=== PATIENT | male | born 1980 | race Asian ===

== ENCOUNTER 2021-06-07 08:53 | Outpatient (REF) | payer OTHER, SELFPAY ==
[2021-06-07 10:27] LABS: MANUAL DIFF FLAG NO
[2021-06-07 10:30] LABS: Basophils Percent Auto 0.4 % (0-2); Eosinophils Absolute Auto 0.4 X10*3/uL (0.0-0.4); Eosinophils Percent Auto 4.4 % (0-4); Hematocrit 44.5 % (42.0-52.0); Hemoglobin 14.8 g/dl (14.0-18.0); Imm Gran Abs Auto 0.03 X10*3/uL (0.00-0.03); Imm Gran Pct Auto 0.4 % (0.0-0.4); Lymphocytes Absolute Auto 2.7 X10*3/uL (1.2-4.9); Lymphocytes Percent Auto 32.3 % (20-40); Mean Corpuscular HGB Conc 33.3 g/dl (31.0-36.0); Mean Corpuscular Hemoglobin 27.6 pg (27.0-33.0); Mean Platelet Volume 10.9 fL (9.4-12.4); Monocytes Absolute Auto 0.7 X10*3/uL (0.1-1.2); Neutrophils Absolute Auto 4.5 x10*3/uL (2.0-8.3); Neutrophils Percent Auto 54.5 % (45-73); Platelet Count 260 X10*3/uL (160-400); Red Blood Count 5.36 X10*6/uL (4.60-5.80); Red Cell Distribution Width 13.5 % (11.0-16.0); White Blood Count 8.3 X10*3/uL (4.8-10.8)
[2021-06-07 11:14] LABS: Alanine Aminotransferase 27 U/L (0-40); Albumin Level 4.3 g/dL (3.5-5.0); Alkaline Phosphatase 87 U/L (39-117); Anion Gap 9 (12-20); Aspartate Amino Transferase 21 U/L (5-37); Bilirubin Total 0.9 mg/dL (0.0-1.0); Blood Urea Nitrogen 19 mg/dL (9-16); Calcium 9.3 mg/dL (8.4-10.2); Carbon Dioxide 27 mmol/L (22-29); Chloride 106 mmol/L (96-108); Cholesterol 279 mg/dL; Estimated Glomerular Filt Rate > 60; Glucose Fasting 130 mg/dL (60-99); HDL Cholesterol 39 mg/dL; LDL Cholesterol Calculated 191 mg/dl; Lipase 10 U/L (8-78); Potassium 4.4 mmol/L (3.3-5.1); Sodium 138 mmol/L (135-145); Total Protein 7.6 g/dL (6.5-8.0); Triglycerides 247 mg/dL
[2021-06-07 11:32] LABS: TSH reflex Free T4 0.87 uIU/mL (0.32-4.0)
== END 2021-06-07 08:54 | disposition home or self-care (01) ==
LOC: HO.WFDLDS 08:53
PROVIDERS: Visit Provider Family Medicine
DX: Z00.00 Encounter for general adult medical examination without abnormal findings (principal); R10.9 Unspecified abdominal pain
CPT/HCPCS: 36415; 80053; 80061; 83690; 84443; 85025

== ENCOUNTER 2021-06-20 11:48 | Outpatient (REF) | payer OTHER, SELFPAY ==
[2021-06-20 14:17] LABS: Estimated Average Glucose 117 mg/dL; Hemoglobin A1c % 5.7 %
[2021-06-20 14:25] LABS: Anion Gap 11 (12-20); Blood Urea Nitrogen 14 mg/dL (9-16); Calcium 9.8 mg/dL (8.4-10.2); Carbon Dioxide 28 mmol/L (22-29); Chloride 106 mmol/L (96-108); Estimated Glomerular Filt Rate > 60; Glucose Fasting 110 mg/dL (60-99); Potassium 4.7 mmol/L (3.3-5.1); Sodium 140 mmol/L (135-145)
== END 2021-06-20 11:49 | disposition home or self-care (01) ==
LOC: HO.WFDLDS 11:48
PROVIDERS: Visit Provider Family Medicine
DX: R73.01 Impaired fasting glucose (principal)
CPT/HCPCS: 36415; 80048; 83036

== ENCOUNTER 2021-09-12 08:57 | Outpatient (REF) | payer OTHER, SELFPAY ==
[2021-09-12 11:54] LABS: Cholesterol 246 mg/dL; HDL Cholesterol 36 mg/dL; LDL Cholesterol Calculated 179 mg/dl; Triglycerides 159 mg/dL
== END 2021-09-12 08:58 | disposition home or self-care (01) ==
LOC: HO.WFDLDS 08:57
PROVIDERS: Visit Provider Family Medicine
DX: Z00.00 Encounter for general adult medical examination without abnormal findings (principal)
CPT/HCPCS: 36415; 80061

== ENCOUNTER 2021-12-07 11:56 | Outpatient (REF) | payer OTHER, SELFPAY ==
[2021-12-07 13:51] LABS: Cholesterol 274 mg/dL; HDL Cholesterol 33 mg/dL; LDL Cholesterol Calculated 182 mg/dl; Triglycerides 298 mg/dL
== END 2021-12-07 11:57 | disposition home or self-care (01) ==
LOC: HO.WFDLDS 11:56
PROVIDERS: Visit Provider Family Medicine
DX: E78.5 Hyperlipidemia, unspecified (principal)
CPT/HCPCS: 36415; 80061

== ENCOUNTER 2022-05-01 08:45 | Outpatient (REF) | payer OTHER, SELFPAY ==
[2022-05-01 12:17] LABS: Cholesterol 295 mg/dL; HDL Cholesterol 40 mg/dL; LDL Cholesterol Calculated 207 mg/dl; Triglycerides 240 mg/dL
== END 2022-05-01 08:46 | disposition home or self-care (01) ==
LOC: HO.WFDLDS 08:45
PROVIDERS: Visit Provider Family Medicine
DX: Z00.00 Encounter for general adult medical examination without abnormal findings (principal); E78.5 Hyperlipidemia, unspecified
CPT/HCPCS: 36415; 80061

== ENCOUNTER 2022-08-08 08:44 | Outpatient (REF) | payer OTHER, SELFPAY ==
[2022-08-08 11:29] LABS: Alanine Aminotransferase 32 U/L (0-40); Albumin Level 4.2 g/dL (3.5-5.0); Alkaline Phosphatase 88 U/L (39-117); Anion Gap 13 (12-20); Aspartate Amino Transferase 21 U/L (5-37); Bilirubin Total 0.8 mg/dL (0.0-1.0); Blood Urea Nitrogen 16 mg/dL (9-16); Calcium 9.2 mg/dL (8.4-10.2); Carbon Dioxide 24 mmol/L (22-29); Chloride 106 mmol/L (96-108); Cholesterol 190 mg/dL; Estimated Glomerular Filt Rate > 60; Glucose Fasting 127 mg/dL (60-99); HDL Cholesterol 35 mg/dL; LDL Cholesterol Calculated 103 mg/dl; Potassium 4.4 mmol/L (3.3-5.1); Sodium 139 mmol/L (135-145); Total Protein 7.2 g/dL (6.5-8.0); Triglycerides 262 mg/dL
== END 2022-08-08 08:45 | disposition home or self-care (01) ==
LOC: HO.WFDLDS 08:44
PROVIDERS: Visit Provider Family Medicine
DX: Z00.00 Encounter for general adult medical examination without abnormal findings (principal); E78.5 Hyperlipidemia, unspecified
CPT/HCPCS: 36415; 80053; 80061

== ENCOUNTER 2023-01-28 16:13 | Outpatient (AMB) | payer OTHER, SELFPAY ==
--- NOTE | 2023-01-28 16:32 | A.OFFPC_ITS ---
Vital Signs 01/28/23 16:34 Height 4 ft 4 in Weight 161 lb 8 oz BMI 42.0 BP 114/70 Blood Pressure Location Rt brachial Position Sitting Respiration 13 Pulse 84 Pulse Source Pulse Oximeter Temp 97.6 F Temp Source Temporal Artery Scan Pulse Oximetry (%) 98 Oxygen Delivery Method Room Air Intake Visit Reasons: f/u pre-diabetes Intake Note: Patient reports he has been having body pains x2 months and he is here to follow up with diabetic care. 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 Accompanied by: Self / Same As Patient Allergies flower Adverse Reaction (Mild, Uncoded 01/28/23 17:01) Itching Medication List - Last Reconciled 01/28/23 by Joelle Seo CNP meloxicam 15 mg PO DAILY 30 days Tobacco use date assessed: 08/15/22 Dental Screening Dental Screen Date: 01/28/23 Did you have a dental visit in the last 12 months?: No Did you have a dental problem in the last 6 months where you did not have access to dental care?: No Was dental information given to patient?: Patient has dentist HPI HPI Comments History of Present Illness Details 42 y/o male presents for prediabetes and upper arm pain for the past 2 months. His previous A1c were 5.7% and 5.9% respectively. He was instructed on left side changes. He notes he stop taking rosuvastatin because it was instructed by his PCP to do so. He reports left upper arm pain proximal to the elbow for the past 2 months. [id number] remedies and old scrip for back pain have not been effective. Denies joint involvement. Denies fall, injury, or trauma. Denies tingling, numbness, or loss of sensation. He reports history of fractured left elbow several years ago. [facility] Surgical History (Updated 02/12/22 @ 16:12 by TYSHAWN Stubbs) No pertinent past surgical history Social History Housing: House Alcohol intake: current Alcohol intake frequency: holidays/special occasions only Patient Tobacco Use Status: Current everyday Tobacco user Tobacco use type: Cigarette Cigarettes Per Day: 4 e-Cigarette/Vaping Use: Never Used Second Hand Smoke Exposure: No service: No Current occupational status: employed Current occupational exposures/hazards: No Cognitive needs: No Hearing needs: No Vision needs: No Questionnaire Thrive Questionnaire Date Thrive assessed: 06/20/21 KATHI-7 AMB Questionnaire KATHI-7 Date KATHI - 7 assessed: 09/21/21 Source: Developed by Drs. Matthew Esquivel, Araceli Lucia, Viktor Guaman and colleagues, with an educational ofe from [employer]. Review of Systems Const Details: Const Denies chills, Denies fatigue, Denies fever(s), Denies headache(s) and Denies weakness ENT Denies dizziness and Denies headache(s) Card Denies chest pain, Denies lightheadedness, Denies dyspnea and Denies other (Palpitations) Resp Denies cough, Denies dyspnea, Denies wheezing and Denies other ( shortness of breath) GI Denies abdominal pain, Denies melena, Denies hematochezia, Denies change in bowel habits, Denies dyspepsia and Denies nausea Denies hematuria and Denies dysuria Musc Reports as per HPI Skin/Breast Denies rash, Denies unusual bruising and Denies wounds Neuro Denies abnormal gait, Denies dizziness, Denies headache(s), Denies memory loss, Denies numbness, Denies Sensory deficit (Neuro), Denies tingling and Denies weakness Psych Denies anxiety, Denies depression, Denies memory loss Endo Denies cold intolerance, Denies fatigue, Denies heat intolerance, Denies polydipsia and Denies polyuria Aller/Immun Denies wheezing Physical exam (Primary Care) Vital Signs: Last Vital Signs Temp 97.6 F 01/28/23 16:34 Pulse 84 01/28/23 16:34 Resp 13 01/28/23 16:34 BP 114/70 01/28/23 16:34 Pulse Ox 98 01/28/23 16:34 Oxygen Delivery Method Room Air 01/28/23 16:34 BMI result Body Mass Index 42.0 Tobacco/Smoking Status: Tobacco use Status Tobacco use date assessed 08/15/22 01/28/23 16:37 Patient Tobacco Use Status Current everyday Tobacco 01/28/23 16:37 Tobacco use type Cigarette 01/28/23 16:37 e-Cigarette/Vaping Use Never Used 01/28/23 16:37 Thrive Assessment: Date of Thrive Assessment Date Thrive assessed 06/20/21 01/28/23 16:37 Const Other: General: no acute distress and well developed Nutritional Appearance: well nourished Orientation/consciousness: patient oriented x3 [facility] Head: Yes normocephalic and Yes atraumatic Eyes General: appearance normal, both eyes and all related structures Pupils: Equal, round and reactive pupils present EOM: EOMs intact bilaterally Resp Effort & Inspection: normal respiratory effort Auscultation: clear to auscultation bilaterally Cardio Rate: regular rate Rhythm: regular rhythm Heart sounds: S1 normal heart sound present, S2 normal heart sound present, no gallops, no murmurs and no rubs GI Palpation (GI): No Abdominal aortic bruit present, Soft to palpation, nontender, No hepatosplenomegaly present and No Rebound tenderness present Auscultation: normal bowel sounds General: Yes no CVA tenderness Back/Spine/Pelvis Back: no CVA tenderness Cervical Spine: cervical ROM normal and No Cervical spine tenderness Thoracic/Lumbar Spine: thoraco-lumbar ROM normal, No pain with thoraco-lumbar ROM, No thoracic spinal tenderness and No lumbar spinal tenderness Extrem General: Yes normal to inspection, No edema and No calf tenderness Negative Mill's test Skin General: warm and dry. Normal skin color. Normal skin turgor Lesions: no lesions Rashes: no rashes Trauma: no lacerations or abrasions Wounds: no wounds Nails: normal Neuro General: patient oriented x3, gait normal and no focal neuro deficit Cranial nerves: Yes Equal, round and reactive pupils present Cognition (Neuro): normal cognition Gait exam (Neuro): Normal gait present Sensory Exam: No Sensory deficit (Neuro) Psych Appearance: grossly normal Affect: normal affect Attitude: cooperative Thought process: Normal thought process present Results AMB Hemoglobin A1c AMB Hemoglobin A1c 7.1 % Last Edit by Maria Antonia Townsend CMA on 01/28/23 16:46 Results Reviewed Results Reviewed: Laboratory Last Values Hgb A1c (Clinic) 7.1 % (4.0-6.0) H 01/28/23 16:43 Assessment and Plan Assessment & Plan (1) Left arm pain: Code(s): M79.602 - Pain in left arm Plan: Normal ROM No overt trauma or injury noted Negative Mill's test Likely muscular pain. May also be tendinitis Naproxen ordered. Take as prescribed Warm/cold compresses encouraged Follow-up with worsening or new symptoms Verbalized understanding and agreed with treatment plan. (2) Diabetes: Code(s): E11.9 - Type 2 diabetes mellitus without complications Plan: A1c 7.1% today, slightly above goal of less than 7.0% Declines medication treatment at this time and notes he will continue with lifestyle changes ADA diet and routine exercise encouraged Informed that his PCP recommended for him to continue to take rosuvastatin as prescribed Follow-up with PCP in 3 months or return sooner with symptoms or concerns Verbalized understanding and agreed with treatment plan. Orders: Orders AMB Hemoglobin A1c Today Z13.9 - Encounter for screening, unspecified Medications: New naproxen 500 mg PO BID PRN 60 tabs 0RF pain Discontinued meloxicam Discontinued Reason: Doctor's Order 15 mg PO DAILY 30 tabs 2RF 30 days Coding Level of Care Code Est Pt Level 3 (30795) Diagnoses Left arm pain M79.602 Diabetes E11.9
[2023-01-28 16:34] VITALS: BP 114/70; PULSE 84; RESP 13; TEMP 36.4; O2SAT 98; BMI 42.0
== END 2023-01-28 17:27 | disposition home or self-care (01) ==
PROVIDERS: PCP Family Medicine; Visit Provider Nurse Practitioner Family
DX: M79.602 Pain in left arm (principal); E11.9 Type 2 diabetes mellitus without complications
CPT/HCPCS: 83036; 99213

== ENCOUNTER 2023-04-30 08:46 | Outpatient (AMB) | payer OTHER, SELFPAY ==
--- NOTE | 2023-04-30 08:53 | MHC.PC.OV ---
Vital Signs 04/30/23 08:54 Height 5 ft 4 in Weight 159 lb 4 oz BMI 27.3 BP 114/62 Blood Pressure Location Lt brachial Position Sitting Respiration 12 Pulse 65 Pulse Source Pulse Oximeter Pulse Oximetry (%) 98 Oxygen Delivery Method Room Air Intake Visit Reasons: f/u DM Intake Note: Patient is here to follow up on his diabetes today. Allergies flower Adverse Reaction (Mild, Uncoded 04/30/23 08:56) Itching Tobacco use date assessed: 04/30/23 Dental Screening Dental Screen Date: 04/30/23 Did you have a dental visit in the last 12 months?: No Did you have a dental problem in the last 6 months where you did not have access to dental care?: No Was dental information given to patient?: Patient declined HPI f/u DM HPI Details 42 y/o male presents to f/u diabetes. Last A1c 01/28/23 was 7.1%. He had declined any medications and noted he wanted to continue with lifestyle changes. A1c today 04/30/23 5.6%. He states he had stopped his statins 3 months ago. He has changed his dietary intake. He does not exercise much. [facility] Surgical History No pertinent past surgical history Housing: House Alcohol intake: current Alcohol intake frequency: holidays/special occasions only Patient Tobacco Use Status: Current everyday Tobacco user Tobacco use type: Cigarette Cigarettes Per Day: 4 e-Cigarette/Vaping Use: Never Used Second Hand Smoke Exposure: No service: No Current occupational status: employed Current occupational exposures/hazards: No Cognitive needs: No Hearing needs: No Vision needs: No Questionnaire PHQ-9 Over the last 2 weeks, how often have you been bothered by any of the following problems? 1. Little interest or pleasure in doing things: not at all 2. Feeling down, depressed, or hopeless: not at all 3. Trouble falling or staying asleep, or sleeping too much: not at all 4. Feeling tired or having little energy: not at all 5. Poor appetite or overeating: not at all 6. Feeling bad about yourself - or that you are a failure or have let yourself or your family down: not at all 7. Trouble concentrating on things, such as reading the newspaper or watching television: not at all 8. Moving or speaking so slowly that other people could have noticed. Or the opposite - being so fidgety or restless that you have been moving around a lot more than usual: not at all 9. Thoughts that you would be better off or of hurting yourself in some way: not at all Total score: 0 Source: Developed by Drs. Matthew Esquivel, Araceli Lucia, Viktor Guaman and colleagues, with an educational ofe from [email or web address]. Thrive Questionnaire Date Thrive assessed: 06/20/21 AUDIT C Alcohol Use Questionnaire (AUDIT-C) 1. How often do you have a drink containing alcohol?: Monthly or less 2. How many drinks containing alcohol do you have on a typical day when you are drinking?: 1 or 2 3. How often do you have six or more drinks on one occasion?: Never Total Score: 1 KATHI-7 AMB Questionnaire KATHI-7 Date KATHI - 7 assessed: 04/30/23 Feeling nervous, anxious, or on edge: 0 = Not at all Not being able to stop or control worryin = Not at all Worrying too much about different things: 0 = Not at all Trouble relaxin = Not at all Being so restless that it is hard to sit still: 0 = Not at all Becoming easily annoyed or irritable: 0 = Not at all Feeling afraid as if something awful might happen: 0 = Not at all Total KATHI-7 score (0-4 normal; 5-9 mild; 10-14 moderate; 15-21 severe): 0 Source: Developed by Drs. Matthew Esquivel, Araceli Lucia, Viktor Guaman and colleagues, with an educational ofe from [email or web address]. Review of Systems Const Denies chills, Denies fatigue, Denies fever(s), Denies headache(s) and Denies weakness ENT Denies dizziness and Denies headache(s) Card Denies dyspnea Resp Denies cough, Denies dyspnea, Denies wheezing and Denies other (shortness of breath) Musc Denies numbness and Denies tingling Neuro Denies dizziness, Denies headache(s), Denies numbness, Denies tingling and Denies weakness Psych Denies anxiety and Denies depression Endo Denies fatigue Aller/Immun Denies wheezing Physical exam (Primary Care) Vital Signs: Last Vital Signs Pulse 65 04/30/23 08:54 Resp 12 04/30/23 08:54 BP 114/62 04/30/23 08:54 Pulse Ox 98 04/30/23 08:54 Oxygen Delivery Method Room Air 04/30/23 08:54 BMI result Body Mass Index 41.4 Tobacco/Smoking Status: Tobacco use Status Tobacco use date assessed 04/30/23 04/30/23 09:02 Patient Tobacco Use Status Current everyday Tobacco 04/30/23 09:02 Tobacco use type Cigarette 04/30/23 09:02 e-Cigarette/Vaping Use Never Used 04/30/23 09:02 PHQ-9: PHQ-9 Score PHQ-9: Total score 0 04/30/23 09:20 Thrive Assessment: Date of Thrive Assessment Date Thrive assessed 06/20/21 04/30/23 09:02 Const General: well developed; No acute distress Nutritional Appearance: obese morbidly obese Orientation/consciousness: patient oriented x3 [facility] Head: Yes normocephalic and Yes atraumatic Eyes General: appearance normal, both eyes and all related structures Pupils: Equal, round and reactive pupils present EOM: EOMs intact bilaterally Resp Effort & Inspection: normal respiratory effort Auscultation: clear to auscultation bilaterally Cardio Rate: regular rate Rhythm: regular rhythm Heart sounds: S1 normal heart sound present, S2 normal heart sound present, no gallops, no murmurs and no rubs Neuro General: patient oriented x3 and gait normal Cranial nerves: Yes Equal, round and reactive pupils present Psych Affect: normal affect Results AMB Hemoglobin A1c AMB Hemoglobin A1c 5.6 % Last Edit by Maria Antonia Townsend CMA on 04/30/23 09:13 Results Reviewed Results Reviewed: Laboratory Last Values Hgb A1c (Clinic) 5.6 % (4.0-6.0) 04/30/23 09:09 Assessment and Plan Assessment & Plan (1) Diet-controlled diabetes mellitus: Code(s): E11.9 - Type 2 diabetes mellitus without complications Plan: A1c?now?down?to?5.6%?from?over?7% Diet-controlled?diabetes Encouraged?ongoing?dietary?changes. Encouraged?weight?control?and?exercise (2) Hyperlipidemia: Code(s): E78.5 - Hyperlipidemia, unspecified Plan: Patient?discontinued?his?statin?a?few?months?ago. LDL?cholesterol?had?been 207?when?we?were?had?put?him?on?a?statin?medication Recheck?lipids Encouraged?lifestyle?changes Orders: Orders UA and rflx microscopic Today E78.5 - Hyperlipidemia, unspecified, Z00.00 - Encounter for general adult medical examination without abnormal findings Prostate Specific Antigen Scr Today E78.5 - Hyperlipidemia, unspecified, Z12.5 - Encounter for screening for malignant neoplasm of prostate Microalbumin, Random (w Creat) Today E78.5 - Hyperlipidemia, unspecified, I10 - Essential (primary) hypertension AMB Hemoglobin A1c Today Z13.9 - Encounter for screening, unspecified Lipid Panel Today E78.5 - Hyperlipidemia, unspecified, Z00.00 - Encounter for general adult medical examination without abnormal findings Comprehensive [place]. Panel Fast Today E78.5 - Hyperlipidemia, unspecified, Z00.00 - Encounter for general adult medical examination without abnormal findings TSH reflex Free T4 Today E78.5 - Hyperlipidemia, unspecified, Z00.00 - Encounter for general adult medical examination without abnormal findings Coding Level of Care Code Est Pt Level 3 (47005) Diagnoses Diet-controlled diabetes mellitus E11.9 Hyperlipidemia E78.5
[2023-04-30 08:54] VITALS: BP 114/62; PULSE 65; RESP 12; O2SAT 98; BMI 27.3
== END 2023-04-30 09:49 | disposition home or self-care (01) ==
PROVIDERS: PCP Family Medicine; Visit Provider Family Medicine
DX: E11.9 Type 2 diabetes mellitus without complications (principal); E78.5 Hyperlipidemia, unspecified
CPT/HCPCS: 83036; 99213

== ENCOUNTER 2023-06-20 08:59 | Outpatient (REF) | payer OTHER, SELFPAY ==
[2023-06-20 13:23] LABS: Alanine Aminotransferase 31 U/L (0-40); Albumin Level 4.1 g/dL (3.5-5.0); Alkaline Phosphatase 100 U/L (39-117); Anion Gap 10 (12-20); Aspartate Amino Transferase 21 U/L (5-37); Bilirubin Total 0.5 mg/dL (0.0-1.0); Blood Urea Nitrogen 20 mg/dL (9-16); Calcium 9.2 mg/dL (8.4-10.2); Carbon Dioxide 25 mmol/L (22-29); Chloride 108 mmol/L (96-108); Cholesterol 247 mg/dL (<200); Estimated Glomerular Filt Rate > 60; Glucose Fasting 115 mg/dL (60-99); HDL Cholesterol 31 mg/dL (>40); LDL Cholesterol Calculated 179 mg/dL (<100); Potassium 4.1 mmol/L (3.3-5.1); Sodium 139 mmol/L (135-145); Total Protein 7.8 g/dL (6.5-8.0); Triglycerides 187 mg/dL (<150)
[2023-06-20 13:42] LABS: TSH reflex Free T4 1.03 uIU/mL (0.32-4.0)
== END 2023-06-20 09:00 | disposition home or self-care (01) ==
LOC: HO.WFDLDS 08:59
PROVIDERS: Visit Provider Family Medicine
DX: Z00.00 Encounter for general adult medical examination without abnormal findings (principal); Z12.5 Encounter for screening for malignant neoplasm of prostate; E78.5 Hyperlipidemia, unspecified
CPT/HCPCS: 36415; 80053; 80061; 84153; 84443

== ENCOUNTER 2023-08-28 08:51 | Outpatient (AMB) | payer OTHER, SELFPAY ==
--- NOTE | 2023-08-28 08:55 | A.OFFPC_ITS ---
Vital Signs 08/28/23 08:56 Height 5 ft 4 in Weight 161 lb 6 oz BMI 27.7 BP 114/66 Blood Pressure Location Lt brachial Position Sitting Pulse 76 Pulse Source Pulse Oximeter Pulse Oximetry (%) 99 Oxygen Delivery Method Room Air Intake Visit Reasons: CPE with f/u labs and health maintenance Intake Note: Patient is here today for his physical. Allergies flower Adverse Reaction (Mild, Uncoded 08/28/23 08:58) Itching Tobacco use date assessed: 08/28/23 Dental Screening Dental Screen Date: 08/28/23 Did you have a dental visit in the last 12 months?: No Did you have a dental problem in the last 6 months where you did not have access to dental care?: No Was dental information given to patient?: Patient declined HPI CPE with f/u labs and health maintenance HPI Details 43 y/o male presents for a CPE with f/u labs and health maintenance. Labs were drawn 06/20/23. Reviewed labs with pt. Elevated fasting glucose of 115. Last A1c in April was 5.6% - diet controlled diabetes. Triglycerides 187. TC 247. LDL 179. HDL low at 31. PSA 0.40 ng/mL. Pt states he has not had a colonoscopy before. A1c today 08/28/23 6.0%. [facility] Surgical History No pertinent past surgical history Social History Housing: House Alcohol intake: current Alcohol intake frequency: holidays/special occasions only Patient Tobacco Use Status: Current everyday Tobacco user Tobacco use type: Cigarette Cigarettes Per Day: 4 e-Cigarette/Vaping Use: Never Used Second Hand Smoke Exposure: No service: No Current occupational status: employed Current occupational exposures/hazards: No Cognitive needs: No Hearing needs: No Vision needs: No Questionnaire PHQ-9 Over the last 2 weeks, how often have you been bothered by any of the following problems? 1. Little interest or pleasure in doing things: not at all 2. Feeling down, depressed, or hopeless: not at all 3. Trouble falling or staying asleep, or sleeping too much: not at all 4. Feeling tired or having little energy: not at all 5. Poor appetite or overeating: not at all 6. Feeling bad about yourself - or that you are a failure or have let yourself or your family down: not at all 7. Trouble concentrating on things, such as reading the newspaper or watching television: not at all 8. Moving or speaking so slowly that other people could have noticed. Or the opposite - being so fidgety or restless that you have been moving around a lot more than usual: not at all 9. Thoughts that you would be better off or of hurting yourself in some way: not at all Total score: 0 Depression Screening Interpretation: Negative Depression Screening Done: Yes 24287 - PHQ-9 Billing: Yes Source: Developed by Drs. Matthew Esquivel, Araceli Lucia, Viktor Guaman and colleagues, with an educational ofe from [employer]. Thrive Questionnaire Date Thrive assessed: 08/28/23 I am a: Patient What is your living situation today?: I have a steady place to live Within the past 12 months, did the food you bought not last and you didn't have the money to get more?: Never true Within the past 12 months, did you worry whether your food would run out before you got money to buy more?: Never true Do you have trouble paying for medicines?: No Do you have trouble getting transportation to medical appointments?: No Do you have trouble paying your heating and electricity bill?: No Do you have trouble taking care of your child, family member or friend?: No Do you have trouble with day-to-day activities such as bathing, preparing meals, shopping, managing finances, etc.?: No Are you currently unemployed and looking for a job?: No Are you interested in more education?: No THRIVE Score: 0 AUDIT C Alcohol Use Questionnaire (AUDIT-C) 1. How often do you have a drink containing alcohol?: Monthly or less 2. How many drinks containing alcohol do you have on a typical day when you are drinking?: 5 or 6 3. How often do you have six or more drinks on one occasion?: Less than monthly Total Score: 4 KATHI-7 AMB Questionnaire KATHI-7 Date KATHI - 7 assessed: 08/28/23 Feeling nervous, anxious, or on edge: 0 = Not at all Not being able to stop or control worryin = Not at all Worrying too much about different things: 0 = Not at all Trouble relaxin = Not at all Being so restless that it is hard to sit still: 0 = Not at all Becoming easily annoyed or irritable: 0 = Not at all Feeling afraid as if something awful might happen: 0 = Not at all Total KATHI-7 score (0-4 normal; 5-9 mild; 10-14 moderate; 15-21 severe): 0 Source: Developed by Drs. Matthew Esquivel, Araceli Lucia, Viktor Guaman and colleagues, with an educational ofe from [employer]. KATHI-7 Assessment Billing KATHI-7 Assessment Tool: KATHI-7 Assessment [id number] Review of Systems Const Denies chills, Denies fatigue, Denies fever(s), Denies headache(s) and Denies weakness Eyes Denies change in vision ENT Denies dizziness, Denies headache(s), Denies hearing loss, Denies nasal congestion, Denies sinus pain, Denies sinus pressure and Denies sore throat Card Denies chest pain, Denies lightheadedness, Denies dyspnea and Denies other (palpitations) Resp Denies cough, Denies dyspnea and Denies wheezing GI Denies abdominal pain, Denies melena, Denies hematochezia, Denies change in bowel habits, Denies dyspepsia and Denies nausea Denies hematuria and Denies dysuria Musc Denies abnormal gait, Denies myalgias, Denies arthralgias, Denies numbness and Denies tingling Skin/Breast Denies rash, Denies unusual bruising and Denies wounds Neuro Denies abnormal gait, Denies dizziness, Denies headache(s), Denies memory loss, Denies numbness, Denies Sensory deficit (Neuro), Denies tingling and Denies weakness Psych Denies anxiety, Denies depression and Denies memory loss Endo Denies cold intolerance, Denies fatigue, Denies heat intolerance, Denies polydipsia and Denies polyuria Johny/Lymph Denies easy bleeding and Denies easy bruising Aller/Immun Denies wheezing Physical exam (Primary Care) Vital Signs: Last Vital Signs Pulse 76 08/28/23 08:56 BP 114/66 08/28/23 08:56 Pulse Ox 99 03/27/24 08:56 Oxygen Delivery Method Room Air 03/27/24 08:56 BMI result Body Mass Index 27.7 Tobacco/Smoking Status: Tobacco use Status Tobacco use date assessed 08/28/23 08/28/23 09:00 Patient Tobacco Use Status Current everyday Tobacco 08/28/23 09:00 Tobacco use type Cigarette 08/28/23 09:00 e-Cigarette/Vaping Use Never Used 08/28/23 09:00 PHQ-9: PHQ-9 Score PHQ-9: Total score 0 08/28/23 09:28 Depression Screening Interpretation: Negative Thrive Assessment: Date of Thrive Assessment Date Thrive assessed 08/28/23 08/28/23 09:05 Const General: no acute distress, well developed, alert and awake Nutritional Appearance: well nourished Orientation/consciousness: patient oriented x3 HENMT Head: Yes normocephalic and Yes atraumatic Ears: hearing grossly normal bilaterally and TM's normal bilaterally General nose exam: Normal external nose present and Normal nares present Mouth: Normal oral and palatal mucosa present and moist mucous membranes Teeth and gingiva: dentition normal Throat: Yes posterior oropharynx normal Eyes General: appearance normal, both eyes and all related structures Pupils: Equal, round and reactive pupils present and Pupil accommodation reflex normal EOM: EOMs intact bilaterally Neck Neck: Yes normal visual inspection, Yes no lymphadenopathy and Yes trachea midline Thyroid: Thyroid normal Carotids: no bruits Lymphatic: no lymphadenopathy noted Chest Chest palpation & inspection: normal inspection of the chest Resp Effort & Inspection: normal respiratory effort Auscultation: clear to auscultation bilaterally Cardio Rate: regular rate Rhythm: regular rhythm Heart sounds: S1 normal heart sound present, S2 normal heart sound present, no gallops, no murmurs and no rubs Bruits: no abdominal aortic bruits and no carotid bruits GI Palpation (GI): No Abdominal aortic bruit present, Soft to palpation, nontender, No hepatosplenomegaly present and No Rebound tenderness present Auscultation: normal bowel sounds General: Yes no CVA tenderness Back/Spine/Pelvis Back: no CVA tenderness Cervical Spine: cervical ROM normal and No Cervical spine tenderness Thoracic/Lumbar Spine: thoraco-lumbar ROM normal, No pain with thoraco-lumbar ROM, No thoracic spinal tenderness and No lumbar spinal tenderness Skin Lesions: no lesions Rashes: no rashes Trauma: no lacerations or abrasions Wounds: no wounds Nails: normal Neuro General: patient oriented x3 Cranial nerves: Yes Equal, round and reactive pupils present Cognition (Neuro): normal cognition Gait exam (Neuro): Normal gait present Motor exam (neuro): 5/5 motor strength present throughout Sensory Exam: No Sensory deficit (Neuro) Deep tendon reflexes (DTR's): Right patellar reflex intensity grade: 2+ and Left patellar reflex intensity grade: 2+ Extrem General: Yes normal to inspection and No edema Psych Appearance: grossly normal Affect: normal affect Attitude: cooperative Thought process: Normal thought process present Assessment and Plan Assessment & Plan (1) Adult general medical exam: Code(s): Z00.00 - Encounter for general adult medical examination without abnormal findings Plan: 43-year-old?male?presents?for?complete?physical?exam Encouraged?healthy?diet?with?active?lifestyle?and?plenty?of?exercise (2) Diet-controlled diabetes mellitus: Code(s): E11.9 - Type 2 diabetes mellitus without complications Plan: A1c?6.0%.??Goal?is?less?than?7.0%.??Good?control Continue?diet?control (3) Hyperlipidemia: Code(s): E78.5 - Hyperlipidemia, unspecified Plan: Had?been?on?atorvastatin?but?discontinued?this. Repeat?LDL?is?significantly?above?goal?of?less?than?100 Also?low?HDL?and?elevated?triglycerides Will?start?rosuvastatin?40?mg?daily (4) Low HDL (under 40): Code(s): E78.6 - Lipoprotein deficiency Plan: Low?HDL Encouraged?exercise (5) Screening for colon cancer: Code(s): Z12.11 - Encounter for screening for malignant neoplasm of colon Plan: Due?for?colonoscopy Referred?him?to?Gastroenterology (6) Screening for prostate cancer: Code(s): Z12.5 - Encounter for screening for malignant neoplasm of prostate Plan: PSA?was?within?normal?limits Orders: Orders AMB Hemoglobin A1c Today Z13.9 - Encounter for screening, unspecified Comprehensive [place]. Panel Fast Today E78.5 - Hyperlipidemia, unspecified, Z00.00 - Encounter for general adult medical examination without abnormal findings Lipid Panel Today E78.5 - Hyperlipidemia, unspecified, Z00.00 - Encounter for general adult medical examination without abnormal findings Referrals Gastroenterology Referral Z12.11 - Encounter for screening for malignant neoplasm of colon Medications: New rosuvastatin 40 mg PO DAILY 90 days 90 tabs 2RF Coding Level of Care Code Est Pt Level 3 (97566) Est Pt Prev Care 40-64y(54176) Diagnoses Adult general medical exam Z00.00 Diet-controlled diabetes mellitus E11.9 Hyperlipidemia E78.5 Low HDL (under 40) E78.6 Screening for colon cancer Z12.11 Screening for prostate cancer Z12.5 Additional Codes KATHI-7 Assessment Billing - KATHI-7 Assessment Tool: KATHI-7 Assessment [id number] ([id number])
[2023-08-28 08:56] VITALS: BP 114/66; PULSE 76; O2SAT 99; BMI 27.7
== END 2023-08-28 09:46 | disposition home or self-care (01) ==
PROVIDERS: PCP Family Medicine; Visit Provider Family Medicine
DX: Z00.00 Encounter for general adult medical examination without abnormal findings (principal); E11.69 Type 2 diabetes mellitus with other specified complication; E78.5 Hyperlipidemia, unspecified; E78.6 Lipoprotein deficiency; Z12.11 Encounter for screening for malignant neoplasm of colon; Z12.5 Encounter for screening for malignant neoplasm of prostate
CPT/HCPCS: 83036; 99213; 99396

== ENCOUNTER 2024-02-05 08:39 | Outpatient (AMB) | payer OTHER, SELFPAY ==
--- NOTE | 2024-02-05 08:52 | A.OFFPC_ITS ---
Vital Signs 02/05/24 08:54 Height 5 ft 2 in Weight 164 lb 6 oz BMI 30.1 BP 100/60 Blood Pressure Location Lt brachial Position Sitting Respiration 16 Pulse 72 Pulse Source Pulse Oximeter Temp 97.7 F Temp Source Tympanic Pulse Oximetry (%) 98 Oxygen Delivery Method Room Air Intake Visit Reasons: diet-controlled diabetes and hyperlipidemia Intake Note: F/U for DM and hyperlipidemia Allergies flower Adverse Reaction (Mild, Uncoded 08/28/23 08:58) Itching Tobacco use date assessed: 08/28/23 Dental Screening Dental Screen Date: 08/28/23 HPI diet-controlled diabetes and hyperlipidemia HPI Details 43 y/o male presents to f/u diet control led diabetes, hyperlipidemia. Last A1c 08/28/23 6.0%. A1c today 02/05/24 5.9%. Had started him on rosuvastatin 40mg daily last office visit in August. He notes he had stopped taking this. He states he felt his body did not need this anymore. No recent lipid panel to review. [facility] Surgical History No pertinent past surgical history Social History Housing: House Alcohol intake: current Alcohol intake frequency: holidays/special occasions only Patient Tobacco Use Status: Current everyday Tobacco user Tobacco use type: Cigarette Cigarettes Per Day: 4 e-Cigarette/Vaping Use: Never Used Second Hand Smoke Exposure: No service: No Current occupational status: employed Current occupational exposures/hazards: No Cognitive needs: No Hearing needs: No Vision needs: No Questionnaire Thrive Questionnaire Date Thrive assessed: 08/28/23 KATHI-7 AMB Questionnaire KATHI-7 Date KATHI - 7 assessed: 08/28/23 Source: Developed by Drs. Matthew Esquivel, Araceli Lucia, Viktor Guaman and colleagues, with an educational ofe from [employer]. Physical exam (Primary Care) Vital Signs: Last Vital Signs Temp 97.7 F 02/05/24 08:54 Pulse 72 02/05/24 08:54 Resp 16 02/05/24 08:54 BP 100/60 02/05/24 08:54 Pulse Ox 98 02/05/24 08:54 Oxygen Delivery Method Room Air 02/05/24 08:54 BMI result Body Mass Index 30.1 Tobacco/Smoking Status: Tobacco use Status Tobacco use date assessed 08/28/23 02/05/24 08:56 Patient Tobacco Use Status Current everyday Tobacco 02/05/24 08:56 Tobacco use type Cigarette 02/05/24 08:56 e-Cigarette/Vaping Use Never Used 02/05/24 08:56 Thrive Assessment: Date of Thrive Assessment Date Thrive assessed 08/28/23 02/05/24 08:56 Assessment and Plan Assessment & Plan (1) Diet-controlled diabetes mellitus: Code(s): E11.9 - Type 2 diabetes mellitus without complications Plan: A1c?5.9% Continue?diet?control.??Avoid?sugars?and?starches (2) Hyperlipidemia: Code(s): E78.5 - Hyperlipidemia, unspecified Plan: Lipids?have?been?high?including?LDL?greater?than?200?and?patient?was?put?on?stat in?medication. He?has?discontinued?this.??Has?not?gotten?his?lipids?drawn. Will?recheck?lipids?today?including?direct?LDL We?will?discuss?by?telemedicine?in?a?few?weeks Orders: Orders Lipid Panel Today Z00.00 - Encounter for general adult medical examination without abnormal findings LDL Cholesterol Direct Today E78.5 - Hyperlipidemia, unspecified Comprehensive Met. Panel Today E78.5 - Hyperlipidemia, unspecified Coding Level of Care Code Est Pt Level 3 (50241) Diagnoses Diet-controlled diabetes mellitus E11.9 Hyperlipidemia E78.5
[2024-02-05 08:54] VITALS: BP 100/60; PULSE 72; RESP 16; TEMP 36.5; O2SAT 98; BMI 30.1
== END 2024-02-05 09:21 | disposition home or self-care (01) ==
PROVIDERS: PCP Family Medicine; Visit Provider Family Medicine
DX: E11.9 Type 2 diabetes mellitus without complications (principal); E78.5 Hyperlipidemia, unspecified
CPT/HCPCS: 99213

== ENCOUNTER 2024-02-05 09:27 | Outpatient (REF) | payer OTHER, SELFPAY ==
[2024-02-05 11:37] LABS: Alanine Aminotransferase 41 U/L (0-40); Albumin Level 4.4 g/dL (3.5-5.0); Alkaline Phosphatase 86 U/L (39-117); Anion Gap 13 (12-20); Aspartate Amino Transferase 39 U/L (5-37); Bilirubin Total 0.4 mg/dL (0.0-1.0); Blood Urea Nitrogen 13 mg/dL (9-16); Calcium 9.3 mg/dL (8.4-10.2); Carbon Dioxide 24 mmol/L (22-29); Chloride 106 mmol/L (96-108); Cholesterol 236 mg/dL (<200); Estimated Glomerular Filt Rate > 60; Glucose Fasting 111 mg/dL (60-99); Glucose Random 111 mg/dL (60-115); HDL Cholesterol 33 mg/dL (>40); LDL Cholesterol Calculated 142 mg/dL (<100); Potassium 4.1 mmol/L (3.3-5.1); Sodium 139 mmol/L (135-145); Total Protein 8.3 g/dL (6.5-8.0); Triglycerides 305 mg/dL (<150)
[2024-02-06 21:54] LABS: LDL Cholesterol Direct 154 mg/dL (<100)
== END 2024-02-05 09:28 | disposition home or self-care (01) ==
LOC: HO.WFDLDS 09:27
PROVIDERS: Visit Provider Family Medicine
DX: Z00.00 Encounter for general adult medical examination without abnormal findings (principal); E78.5 Hyperlipidemia, unspecified
CPT/HCPCS: 36415; 80053; 80061; 83721

== ENCOUNTER 2024-03-02 11:30 | Outpatient (AMB) | payer OTHER, SELFPAY ==
--- NOTE | 2024-03-02 11:28 | A.OFFPC_ITS ---
Intake Visit Reasons: f/u HLD via telemedicine Intake Note: lab review Allergies flower Adverse Reaction (Mild, Uncoded 08/28/23 08:58) Itching Tobacco use date assessed: 08/28/23 Dental Screening Dental Screen Date: 08/28/23 HPI f/u HLD via telemedicine HPI Details 43 y/o male presents to f/u HLD via tele medicine. Labs drawn 02/05/24. Reviewed labs with pt. He notes he has not been taking artovastatin recently. Triglycerides 305. TC 236. LDL 154. HDL low at 33. PFSH Surgical History (Reviewed 08/28/23 @ 09:00 by Maria Antonia Townsend [facility]) No pertinent past surgical history Social History (Reviewed 08/28/23 @ 09:00 by Maria Antonia Townsend [facility]) Housing: House Alcohol intake: current Alcohol intake frequency: holidays/special occasions only Patient Tobacco Use Status: Current everyday Tobacco user Tobacco use type: Cigarette Cigarettes Per Day: 4 e-Cigarette/Vaping Use: Never Used Second Hand Smoke Exposure: No service: No Current occupational status: employed Current occupational exposures/hazards: No Cognitive needs: No Hearing needs: No Vision needs: No Questionnaire Thrive Questionnaire Date Thrive assessed: 08/28/23 KATHI-7 AMB Questionnaire KATHI-7 Date KATHI - 7 assessed: 08/28/23 Source: Developed by Drs. Matthew Esquivel, Araceli Lucia, Viktor Guaman and colleagues, with an educational ofe from [employer]. Physical exam (Primary Care) Tobacco/Smoking Status: Tobacco use Status Tobacco use date assessed 08/28/23 03/02/24 11:30 Patient Tobacco Use Status Current everyday Tobacco 03/02/24 11:30 Tobacco use type Cigarette 03/02/24 11:30 e-Cigarette/Vaping Use Never Used 03/02/24 11:30 Thrive Assessment: Date of Thrive Assessment Date Thrive assessed 08/28/23 03/02/24 11:30 Telehealth Telehealth Telehealth Platform: Telephone Location of provider rendering services: practice address Location of patient: address on file Patient Identification confirmed using: Name, : Yes Telehealth method: voice only Patient verbally consented to treatment: Yes Patient verbally consented to billing insurance company: Yes Patient informed of any privacy concerns related to visit: Yes Minutes spent on Phone/Video with Pt.: 5 Assessment and Plan Assessment & Plan (1) Hyperlipidemia: Code(s): E78.5 - Hyperlipidemia, unspecified Plan: LDL?cholesterol?is?too?high?as?are?triglycerides. HDL?is?too?low Will?resume?rosuvastatin?40?mg?daily. He?will?get?his?blood?drawn?prior?to?our?next?visit?so?we?can?review?to?see?how? rosuvastatin?is?working. Medications: Refilled rosuvastatin 40 mg PO DAILY 90 tabs 3RF 90 days Coding Level of Care Code Tele Est Pt Level 2 (89647) Diagnoses Hyperlipidemia E78.5
== END 2024-03-02 17:05 ==
LOC: HO.HMCFM 11:30
PROVIDERS: PCP Family Medicine; Visit Provider Family Medicine
DX: E78.5 Hyperlipidemia, unspecified (principal)

== ENCOUNTER → 2024-03-02 11:30 | Outpatient (BNVA) | payer OTHER, SELFPAY | PROVIDERS: PCP Family Medicine; Visit Provider Family Medicine ==

== ENCOUNTER 2024-04-14 10:48 | Emergency (ER) | payer OTHER, SELFPAY ==
--- NOTE | ~2024-04-14 | CT_ITS ---
EXAMINATION: CT ABDOMEN AND PELVIS WITHOUT CONTRAST CLINICAL INFORMATION: Left flank pain COMPARISON: None available. TECHNIQUE: Multidetector volumetric imaging was performed from the superior aspect of the liver through the pubic symphysis. Sagittal and coronal reformatted images were obtained on the technologist's workstation. This CT examination was performed using dose optimization techniques as appropriate, variously including the following: *Automated exposure control *Adjustment of mA and/or kV according to patient size (this includes techniques or standardized protocols for targeted exams where dose is matched to indication/reason for exam; i.e. extremities or head) *Use of iterative reconstruction technique DLP: 472 mGy-cm FINDINGS: INTRAMURAL DIRECTOR: Nonspecific prominent small bowel loops right mid abdomen. Evaluation of the mid abdominal contents limited by motion. LUNG BASES: The visualized lung bases are unremarkable. LIVER, GALLBLADDER, AND BILIARY TREE: The liver is prominent in size. Attenuation within normal limits. No focal hepatic lesion or biliary ductal dilatation is present. The gallbladder is unremarkable with no evidence of radiopaque gallstones, gallbladder wall thickening, or obvious pericholecystic inflammatory changes. . PANCREAS: Unremarkable. SPLEEN: Unremarkable. ADRENAL GLANDS: Unremarkable. KIDNEYS AND URETERS: Right kidney is normal in size, shape and position. No right renal, ureteral calculi, right hydroureteronephrosis identified. In comparison, the left kidney is enlarged measuring 12 cm and is edematous appearing. There is moderate left hydroureteronephrosis down to 7 mm distal UVJ calculus. Perinephric and periureteral stranding. Tiny nonobstructing left midpole calculi. BLADDER: Decompressed GASTROINTESTINAL TRACT: Distended stomach. Nonobstructive bowel pattern. Descending colon is decompressed. No colonic pathology recognized. ABDOMINAL WALL: No significant hernia is appreciated. LYMPH NODES: Normal. VASCULAR: Unremarkable. PELVIC VISCERA: Unremarkable. OSSEOUS STRUCTURES: Unremarkable. CT/CT abdomen pelvis wo IV con IMPRESSION: 7 mm left UVJ calculus with moderate left hydroureteronephrosis, left perinephric, periureteral stranding and edematous appearing left kidney. Fleischner guidelines were followed. Electronically signed by: Jayleen El MD 04/14/2024 01:21 PM [facility] [place]
[2024-04-14 11:54] VITALS: BP 150/96; PULSE 65; RESP 16; TEMP 36.2; O2SAT 100; BMI 32.9
--- NOTE | 2024-04-14 11:59 | ED.GENADULT ---
HPI - General Adult General Chief complaint: Abdominal Pain Stated complaint: abd pain Time Seen by Provider: 04/14/24 18:20 Source: patient Mode of arrival: ambulatory Limitations: no limitations History of Present Illness ED Provider: Mackenzie Aceves NP HPI narrative: Patient is a 43-year-old male presents emergency department for evaluation of diffuse lower abdominal pain radiating to the left flank over the past 3 weeks. Intermittent but is becoming more severe. Reports he was seen at an urgent care and had a urine sample done which contained blood and he was referred to emergency department for further evaluation. He denies any history of kidney stones. He denies seeing any adiel hematuria. Denies fevers, chills, chest pain, nausea, vomiting, hematemesis, diarrhea, constipation, hematochezia, melena, dysuria, frequency, urinary urgency, hesitancy. denies testicular pain/urethral discharge or scrotal swelling. Related Data Previous Rx's ?Medication ?Instructions ?Recorded rosuvastatin 40 mg tablet 40 mg PO DAILY 90 days #90 tabs 03/02/24 oxycodone 5 mg tablet 5 mg PO Q6H PRN pain #7 tabs 04/14/24 prednisone 20 mg tablet 20 mg PO DAILY #4 tabs 04/14/24 tamsulosin 0.4 mg capsule 0.4 mg PO BEDTIME #7 caps 04/14/24 Allergies Allergy/AdvReac Type Severity Reaction Status Date / Time flower AdvReac Mild Itching Uncoded 04/14/24 11:57 Review of Systems Review of Systems: Yes all other systems are reviewed and are negative PMFSH Past Medical History Attestation statement: The following information was validated with the patient. Source: old records reviewed Surgical History No pertinent past surgical history Social History Social History Housing: House Alcohol intake: current Alcohol intake frequency: holidays/special occasions only Alcohol type: beer and wine Patient Tobacco Use Status: Current everyday Tobacco user Tobacco use type: Cigarette Cigarettes Per Day: 4 Smoked in Last 30 Days: Yes e-Cigarette/Vaping Use: Never Used Second Hand Smoke Exposure: No Use of substances other than those prescribed or required for medical reasons: No Advance Directives: No Advance Directives Information Provided: Yes Do you have a plan to hurt others: No Plan service: No Current occupational status: employed Current occupational exposures/hazards: No Cognitive needs: No Hearing needs: No Vision needs: No Physical Exam ED Vital Signs: Vital Signs - 24 hr 04/14/24 11:54 04/14/24 18:25 04/14/24 21:21 Temperature 97.2 F 97.8 F 98.3 F Pulse Rate 65 69 66 Respiratory Rate 16 16 20 Blood Pressure 150/96 H 141/88 H 128/83 Pulse Oximetry 100 100 100 Oxygen Delivery Method Room Air Room Air BMI result Body Mass Index 32.9 Appearance: Alert.?Oriented to person, place and time. No acute distress.?Normal affect.?? Neck: Normal inspection.? Neck supple.?? CVS: Heart sounds normal. Normal heart rate and rhythm.? Pulses normal.?? Respiratory: No respiratory distress.? Lung sounds clear to auscultation bilaterally?? Abdomen: Soft and non-tender. No rebound tenderness at McBurney's point. Negative psoas sign. Negative Rovsing sign. Negative Romero sign. Left CVAT Normoactive bowel sounds. No pulsatile mass.?? Skin: Skin warm and dry.? Normal skin color.? Extremities: No lower extremity edema.? Neuro: Moves all extremities spontaneously. Sensation intact bilaterally. Ambulates with normal steady gait. Course Course Course Narrative: This is a rapid medical exam performed by Barbara Beaver NP: Additional HPI, ROS, PE not included below will be deferred to primary provider. Patient is a 43-year-old male referred to the ED by urgent care to rule out kidney stone. Patient presented with left lower quadrant abdominal pain radiating to flank, UA there noted to have 3+ blood. Plan:Labs, UA, CT, toradol Reevaluation(s) Reevaluation #1: Revealing leukocytosis with left shift, however he is afebrile without tachycardia. Initial concern for possibly an infected stone as he has a 7 mm left UVJ stone with moderate hydroureter nephrosis perinephric and periureteral stranding. Sepsis alert was called, blood cultures and lactic acid were obtained and he was covered with Rocephin. No lactic acidosis. Urine appears without infection. I did discuss this case with Urology, Dr. Ricky Loving recommends that if patient's pain is able to be managed you may be discharged home with outpatient care and follow-up with her office and strict return precautions. Would be discharged with prednisone, tamsulosin, and analgesia. Patient was agreeable with this plan. He received Toradol in the emergency department with improvement in his symptoms. He is tolerating oral intake. He offers no additional infectious type symptoms to suggest an alternative source of infection with this leukocytosis, I suspect it is likely inflammatory in nature, especially given his symptoms have been ongoing for the past 3 weeks. Time: 20:30 Medications Administered Discontinued Medications Generic Name Dose Route Start Last Admin Trade Name Freq PRN Reason Stop Dose Admin Ceftriaxone Sodium 1 gm 04/14/24 18:21 04/14/24 19:31 Ceftriaxone Sodium 1 Gm Vial IVPUSH 04/14/24 18:22 1 gm ONCE ONE Administration Sodium Chloride 1,000 mls @ 999 mls/hr 04/14/24 18:30 04/14/24 21:20 Ns IV 04/14/24 19:30 Infused .Q1H1M JESSICA Infusion Ketorolac Tromethamine 30 mg 04/14/24 11:59 04/14/24 12:03 Ketorolac Tromethamine 30 Mg/Ml Vial IM 04/14/24 12:00 30 mg ONCE ONE Administration Ketorolac Tromethamine 15 mg 04/14/24 18:29 04/14/24 19:31 Ketorolac Tromethamine 15 Mg/Ml Vial IVPUSH 04/14/24 18:30 15 mg ONCE ONE Administration Prednisone 20 mg 04/14/24 20:17 04/14/24 20:44 Prednisone 20 Mg Tablet PO 04/14/24 20:18 20 mg ONCE ONE Administration Tamsulosin HCl 0.4 mg 04/14/24 20:17 04/14/24 20:44 Tamsulosin Hcl 0.4 Mg Capsule PO 04/14/24 20:18 0.4 mg ONCE ONE Administration Medical Decision Making Medical Decision Making [facility] Narrative: Patient is a 43-year-old male presents emergency department for evaluation of 3 weeks with intermittent lower abdominal pain with left flank pain, outpatient urinalysis with microscopic hematuria as per HPI. Abdominal examination is benign anteriorly, left CVAT, overall without signs of systemic toxicity found to be afebrile without tachycardia, no hypotension. Serum labs urinalysis and CT abdomen and pelvis to be obtained. No associated chest pain shortness of breath or URI symptoms to suggest pneumonia, no clinical evidence of DVT or personal history of VTE/malignancy to suggest pulmonary embolism. No high-risk past medical history to suggest myocardial infarction and is without chest pain, less likely AAA, aortic dissection. No abdominal tenderness upon palpation, negative Romero sign, unlikely acute cholecystitis, choledocholithiasis, no fever or jaundice to suggest acute cholangitis, may possibly be biliary colic secondary to cholelithiasis. Denies associated acid reflux, no tenderness upon palpation over the epigastrium or left upper quadrant to suggest gastritis, no recent hematemesis history less likely to suggest PUD. Denies excessive alcohol consumption, history of diabetes, lower suspicion acute pancreatitis. No rebound tenderness at McBurney's point, rigidity, guarding to suggest acute appendicitis. No tenderness of the left lower quadrant nor associated nausea, vomiting, diarrhea patient, hematochezia or melena to suggest diverticulitis or GI bleed. No appreciable hernia to suggest strangulation/incarceration. Lower suspicion for bowel obstruction. No distention or rigidity to suggest GI perforation. no testicular pain or swelling, low clinical suspicion for testicular torsion. Differential Diagnosis Differential Diagnoses: The differential diagnosis associated with the presentation includes (See narrative above) Admission/Observation Consideration of admission/observation: Escalation of care including admission/observation considered (See narrative above ) Lab Data MDM Lab Attestation statement: I reviewed the patient's lab results. 04/14/24 12:48 04/14/24 12:48 Labs: Lab Results 04/14/24 04/14/24 04/14/24 Range/Units 12:48 19:12 19:13 WBC 21.4 H (4.8-10.8) X10*3/uL RBC 5.29 (4.60-5.80) X10*6/uL Hgb 15.1 (14.0-18.0) g/dl Hct 43.4 (42.0-52.0) % MCV 82.0 (80.0-98.0) fL MCH 28.5 (27.0-33.0) pg MCHC 34.8 (31.0-36.0) g/dl RDW 13.0 (11.0-16.0) % Plt Count 292 (160-400) X10*3/uL MPV 10.5 (9.4-12.4) fL Immature Gran % (Auto) 0.5 H (0.0-0.4) % Neut % (Auto) 88.5 H (45-73) % Lymph % (Auto) 5.1 L (20-40) % [place] % (Auto) 5.7 (2-11) % Eos % (Auto) 0.0 (0-4) % Baso % (Auto) 0.2 (0-2) % Lymph # (Auto) 1.1 L (1.2-4.9) X10*3/uL [place] # (Auto) 1.2 (0.1-1.2) X10*3/uL Eos # (Auto) 0.0 (0.0-0.4) X10*3/uL Baso # (Auto) 0.1 (0.0-0.2) X10*3/uL Abs Immat Gran (auto) 0.10 H (0.00-0.03) X10*3/uL Absolute Neuts (auto) 18.9 H (2.0-8.3) x10*3/uL Absolute Nucleated RBC 0.000 (0.0-0.012) X10*3/uL Nucleated RBC % (auto) 0.0 (0.0-0.2) /100WBC Sodium 138 (135-145) mmol/L Potassium 4.2 (3.3-5.1) mmol/L Chloride 104 (96-108) mmol/L Carbon Dioxide 24 (22-29) mmol/L Anion Gap 14 (12-20) BUN 24 H (9-16) mg/dL Creatinine 0.87 (0.5-1.4) mg/dL Estim Creat Clear Calc 89.5 Estimated GFR > 60 Random Glucose 136 H (60-115) mg/dL Lactic Acid 1.6 (0.5-2.0) mmol/L Calcium 9.7 (8.4-10.2) mg/dL Total Bilirubin 0.5 (0.0-1.0) mg/dL AST 31 (5-37) U/L ALT 39 (0-40) U/L Alkaline Phosphatase 94 (39-117) U/L Total Protein 8.2 H (6.5-8.0) g/dL Albumin 4.4 (3.5-5.0) g/dL Urine Color Yellow Urine Appearance Clear Urine pH 7.0 (5.0-9.0) Ur Specific [place] 1.020 (1.005-1.025) Urine Protein Negative (Neg-Trace) mg/dL Urine Glucose (UA) Negative (Negative) mg/dL Urine Ketones Negative (Negative) mg/dL Urine Blood Trace H (Negative) Urine Nitrite Negative (Negative) Ur Leukocyte Esterase Negative (Negative) Urine RBC 3-5 H (0-2) /HPF Urine WBC 0-5 (0-5) /HPF Ur Squamous Epith Cells 0-2 (0-2) /HPF Urine Bacteria None Seen (None Seen) Hyaline Casts 0-2 (0-2) /LPF Independent Interpretation I performed an independent interpretation of an: CT Scan (Left ureteral stone with hydro) Radiology Impression Discussion of test interpretation with radiology: I have reviewed the radiologist's reading. Radiologist Impression: CT/CT abdomen pelvis wo IV con IMPRESSION: 7 mm left UVJ calculus with moderate left hydroureteronephrosis, left perinephric, periureteral stranding and edematous appearing left kidney. Fleischner guidelines were followed. Prescription Management I considered prescription management with: Other (See course narrative) Discharge Plan Discharge Clinical Impression: Hydronephrosis with urinary obstruction due to ureteral calculus Patient Disposition: Home, Self-Care Instructions: Hydronephrosis (ED), Ureteral Stones (ED) Additional Instructions: As mentioned you have a kidney stone that is lodged in your ureter (this small tube that drains the urine from your kidney down to the bladder). As the stone moves it can be very painful. Your urine test today does not show any evidence of infection which is very reassuring. I have sent a few medications to your pharmacy - Tamsulosin; a medicine that will help to dilate the ureter to allow for the stone to pass easier. Take this daily at bedtime. You received the first dose in the emergency department today, you may begin taking it tomorrow night. - Prednisone; this is a steroid that will help as an anti-inflammatory. Take this with food to prevent stomach upset. You received the 1st dose in the emergency department you may take this again tomorrow morning. - I have sent a prescription for oxycodone to your pharmacy. This is a narcotic medication. It may be addictive. You should not drive, drink alcohol, or work while taking this medication. You may take this as needed every 6 hours for severe pain that is intolerable. If your symptoms are worsening meeting your pain is worsening you are not able to keep any food or drink down, you are unable to urinate, or having fevers and chills you should return back to emergency department for evaluation. Please contact the urologist office 1st thing tomorrow morning to arrange for an outpatient follow-up appointment. I have provided their contact information for you with this discharge; Dr. Ricky Loving Prescriptions: New prednisone 20 mg tablet 20 mg PO DAILY Qty: 4 0RF tamsulosin 0.4 mg capsule 0.4 mg PO BEDTIME Qty: 7 0RF oxycodone 5 mg tablet 5 mg PO Q6H PRN (Reason: pain) Qty: 7 0RF Rx Instructions: Partial Fill upon patient request. No Action rosuvastatin 40 mg tablet 40 mg PO DAILY 90 Days Qty: 90 3RF Referrals: Abbi Gore MD [Physician] - Guanako Flores MD [Primary Care Provider] - Interventions: ED Discharge Assessment Last Done: 04/14/24 21:21 Discharge Date/Time: 04/14/24 21:21 Print Language: Telugu
[2024-04-14] MEDS: Ketorolac Tromethamine 30 MG/ML VIAL IM (12:03)
[2024-04-14 12:52] LABS: MANUAL DIFF FLAG NO
[2024-04-14 12:53] LABS: Basophils Absolute Auto 0.1 X10*3/uL (0.0-0.2); Basophils Percent Auto 0.2 % (0-2); Hematocrit 43.4 % (42.0-52.0); Hemoglobin 15.1 g/dl (14.0-18.0); Imm Gran Pct Auto 0.5 % (0.0-0.4); Lymphocytes Absolute Auto 1.1 X10*3/uL (1.2-4.9); Lymphocytes Percent Auto 5.1 % (20-40); Mean Corpuscular HGB Conc 34.8 g/dl (31.0-36.0); Mean Corpuscular Hemoglobin 28.5 pg (27.0-33.0); Mean Platelet Volume 10.5 fL (9.4-12.4); Monocytes Absolute Auto 1.2 X10*3/uL (0.1-1.2); Monocytes Percent Auto 5.7 % (2-11); Neutrophils Absolute Auto 18.9 x10*3/uL (2.0-8.3); Neutrophils Percent Auto 88.5 % (45-73); Platelet Count 292 X10*3/uL (160-400); Red Blood Count 5.29 X10*6/uL (4.60-5.80); White Blood Count 21.4 X10*3/uL (4.8-10.8)
[2024-04-14 13:12] LABS: Alanine Aminotransferase 39 U/L (0-40); Albumin Level 4.4 g/dL (3.5-5.0); Alkaline Phosphatase 94 U/L (39-117); Anion Gap 14 (12-20); Aspartate Amino Transferase 31 U/L (5-37); Bilirubin Total 0.5 mg/dL (0.0-1.0); Blood Urea Nitrogen 24 mg/dL (9-16); Calcium 9.7 mg/dL (8.4-10.2); Carbon Dioxide 24 mmol/L (22-29); Chloride 104 mmol/L (96-108); Creatinine Clr Calc Pharmacy 89.5; Estimated Glomerular Filt Rate > 60; Glucose Random 136 mg/dL (60-115); Potassium 4.2 mmol/L (3.3-5.1); Sodium 138 mmol/L (135-145); Total Protein 8.2 g/dL (6.5-8.0)
[2024-04-14 18:25] VITALS: BP 141/88; PULSE 69; RESP 16; TEMP 36.6; O2SAT 100
[2024-04-14 19:21] LABS: Appearance Urine Clear; Color Urine Yellow; Glucose Urine UA Negative (Negative); Leukocyte Esterase Urine Negative (Negative); Nitrite Urine Negative (Negative); UMIC TRIGGER UACC YES; Urine Blood Trace (Negative); Urine Ketones Negative (Negative); Urine Protein Negative (Neg-Trace)
[2024-04-14] MEDS: 0.9 % Sodium Chloride 1,000 ML 999 ML IV (19:21)
[2024-04-14 19:27] LABS: Bacteria Urine None Seen (None Seen); Hyaline Casts Urine 0-2 /LPF (0-2); Squamous Epithelial Cell Urine 0-2 /HPF (0-2); WBC Urine 0-5 /HPF (0-5)
[2024-04-14] MEDS: Ketorolac Tromethamine 15 MG/ML VIAL IVPUSH (19:31)
[2024-04-14] MEDS: cefTRIAXone sodium 1 GM VIAL IVPUSH (19:31)
[2024-04-14 19:34] LABS: Lactic Acid 1.6 mmol/L (0.5-2.0)
[2024-04-14] MEDS: Tamsulosin HCL 0.4 MG CAPSULE PO (20:44)
[2024-04-14] MEDS: predniSONE 20 MG TABLET PO (20:44)
[2024-04-14 21:21] VITALS: BP 128/83; PULSE 66; RESP 20; TEMP 36.8; O2SAT 100
== END 2024-04-14 21:21 | disposition home or self-care (01) ==
PROVIDERS: Nurse Practitioner Family; Registered Nurse Emergency; Emergency Provider Emergency Medicine; PCP Family Medicine
DX: N13.2 Hydronephrosis with renal and ureteral calculous obstruction (principal); R10.30 Lower abdominal pain, unspecified; R31.9 Hematuria, unspecified; Z79.899 Other long term (current) drug therapy
CPT/HCPCS: 36415; 74176; 80053; 81001; 83605; 85025; 87040; 96361; 96372; 96374; 96376; 99284; J0696; J1885

== ENCOUNTER 2024-04-16 08:31 | Outpatient (AMB) | payer OTHER, SELFPAY ==
--- NOTE | 2024-04-16 08:48 | A.OFFVIS_ITS ---
Intake Visit Reasons: ER follow up 7mm stone Intake Note: ER Follow up 7mm Stone Blood Thinner: None Tool And Equipment Rental Clerk Required: No Allergies flower Adverse Reaction (Mild, Uncoded 04/14/24 11:57) Itching Medication List - Last Reconciled 04/16/24 by Abbi Gore MD oxycodone 5 mg PO Q6H PRN prednisone 20 mg PO DAILY rosuvastatin 40 mg PO DAILY 90 days tamsulosin 0.4 mg PO BEDTIME HPI Comments Details: Christina is a 43-year-old male who was seen in the emergency room a few days ago with complaints of left flank pain. CTAP-7 mm left ureteral stone, distal. There is also a tiny left renal stone. I have discussed to include ureteroscopy. He states that he is comfortable and has not needed to use much of the pain medication. He will continue with Flomax and straining the urine. If he does not pass the stone, plan will be for ureteroscopy laser and ureteral stent. [facility] Surgical History No pertinent past surgical history Social History Housing: House Alcohol intake: current Alcohol intake frequency: holidays/special occasions only Alcohol type: beer and wine Patient Tobacco Use Status: Current everyday Tobacco user Tobacco use type: Cigarette Cigarettes Per Day: 4 e-Cigarette/Vaping Use: Never Used Second Hand Smoke Exposure: No service: No Current occupational status: employed Current occupational exposures/hazards: No Cognitive needs: No Hearing needs: No Vision needs: No Review of Systems Const All systems reviewed & are unremarkable except as noted in HPI and below Reports no additional complaints Eyes Reports no additional complaints ENT Reports no additional complaints Card Reports no additional complaints Resp Reports no additional complaints GI Reports no additional complaints Reports as per HPI Musc Reports no additional complaints Skin/Breast Reports system reviewed and no additional complaints, except as documented Neuro Reports no additional complaints Psych Reports no additional complaints Endo Reports no additional complaints Johny/Lymph Reports no additional complaints Aller/Immun Reports no additional complaints Physical Exam Const General: healthy appearing, no acute distress and well developed Orientation/consciousness: patient oriented x3 HEENT Head: Yes normocephalic and Yes atraumatic Eyes Conjunctivae: conjunctivae normal Neck Neck: Yes normal visual inspection Chest Chest palpation & inspection: normal inspection of the chest Resp Effort & Inspection: normal respiratory effort Cardio Rate: regular rate GI Inspection: Yes normal to inspection Palpation (GI): Soft to palpation Neuro General: patient oriented x3 Extrem General: No pedal edema Psych Appearance: grossly normal Affect: normal affect Results Reviewed Results Reviewed: Date of Service: 04/14/24 CT ABDOMEN AND PELVIS WITHOUT CONTRAST CLINICAL INFORMATION: Left flank pain COMPARISON: None available. TECHNIQUE: Multidetector volumetric imaging was performed from the superior aspect of the liver through the pubic symphysis. Sagittal and coronal reformatted images were obtained on the technologist's workstation. This CT examination was performed using dose optimization techniques as appropriate, variously including the following: *Automated exposure control *Adjustment of mA and/or kV according to patient size (this includes techniques or standardized protocols for targeted exams where dose is matched to indication/reason for exam; i.e. extremities or head) *Use of iterative reconstruction technique DLP: 472 mGy-cm FINDINGS: BLOCK MASON: Nonspecific prominent small bowel loops right mid abdomen. Evaluation of the mid abdominal contents limited by motion. LUNG BASES: The visualized lung bases are unremarkable. LIVER, GALLBLADDER, AND BILIARY TREE: The liver is prominent in size. Attenuation within normal limits. No focal hepatic lesion or biliary ductal dilatation is present. The gallbladder is unremarkable with no evidence of radiopaque gallstones, gallbladder wall thickening, or obvious pericholecystic inflammatory changes. . PANCREAS: Unremarkable. SPLEEN: Unremarkable. ADRENAL GLANDS: Unremarkable. KIDNEYS AND URETERS: Right kidney is normal in size, shape and position. No right renal, ureteral calculi, right hydroureteronephrosis identified. In comparison, the left kidney is enlarged measuring 12 cm and is edematous appearing. There is moderate left hydroureteronephrosis down to 7 mm distal UVJ calculus. Perinephric and periureteral stranding. Tiny nonobstructing left midpole calculi. BLADDER: Decompressed GASTROINTESTINAL TRACT: Distended stomach. Nonobstructive bowel pattern. Descending colon is decompressed. No colonic pathology recognized. ABDOMINAL WALL: No significant hernia is appreciated. LYMPH NODES: Normal. VASCULAR: Unremarkable. PELVIC VISCERA: Unremarkable. OSSEOUS STRUCTURES: Unremarkable. IMPRESSION: 7 mm left UVJ calculus with moderate left hydroureteronephrosis, left perinephric, periureteral stranding and edematous appearing left kidney. Assessment & Plan Assessment & Plan (1) Left ureteral stone: Code(s): N20.1 - Calculus of ureter Category: Medical (2) Hydronephrosis, left: Code(s): N13.30 - Unspecified hydronephrosis Category: Medical (3) Kidney stone on left side: Code(s): N20.0 - Calculus of kidney Category: Medical Plan If he does not pass the stone, plan will be for ureteroscopy laser and ureteral stent. Medications: Refilled tamsulosin 0.4 mg PO BEDTIME 20 caps 0RF Patient Instructions: The patient had an opportunity to ask questions regarding treatment plan. The patient expressed understanding and agreement with the above treatment plan. The patient is aware they should contact our office by phone for worsening of their current condition or the appearance of new symptoms. Compliance is encouraged with any medications and followup testing that is ordered. It is a privilege to be allowed the opportunity to participate in the urologic care of your patient. If you have any questions or concerns regarding treatment for the above conditions please do not hesitate to contact me. The office telephone contact is [phone]. This note is constructed in part using voice recognition software. While every effort has been made to ensure accuracy worksite wellness practitioner errors may have been included. Yours sincerely, Abbi Gore MD Coding Level of Care Code New Pt Level 4 (72626) Diagnoses Left ureteral stone N20.1 Hydronephrosis, left N13.30 Kidney stone on left side N20.0
== END 2024-04-16 09:51 | disposition home or self-care (01) ==
PROVIDERS: PCP Family Medicine; Visit Provider Urology
DX: N20.1 Calculus of ureter (principal); N13.30 Unspecified hydronephrosis; N20.0 Calculus of kidney
CPT/HCPCS: 99204

== ENCOUNTER → 2024-04-16 08:31 | Outpatient (BNVA) | payer OTHER, SELFPAY | PROVIDERS: PCP Family Medicine; Visit Provider Urology ==

== ENCOUNTER 2024-06-08 11:46 | Outpatient (AMB) | payer OTHER, SELFPAY ==
--- NOTE | 2024-06-07 17:41 | MHC.OFFVIS ---
Intake Visit Reasons: 8w follow up Intake Note: Patient is Present for Follow Up Kidney stone Urology Medication: Antibiotic Allergies: Blood Thinners: None Patient states that he passed his stone and feels a lot better Driver Operator Required: No Accompanied by: Self / Same As Patient Allergies flower Adverse Reaction (Mild, Uncoded 06/08/24 11:54) Itching HPI Comments Details: 06/08/24--LV --04/16/24 for ureteral stone was given flomax and strainer, states he passed stone, feels better CTAP-7 mm left ureteral stone, distal. No repeat imaging 04/16/24--Phat is a 43-year-old male who was seen in the emergency room a few days ago with complaints of left flank pain. CTAP-7 mm left ureteral stone, distal. There is also a tiny left renal stone. I have discussed to include ureteroscopy. He states that he is comfortable and has not needed to use much of the pain medication. He will continue with Flomax and straining the urine. If he does not pass the stone, plan will be for ureteroscopy laser and ureteral stent. [facility] Medical History (Updated 06/12/24 @ 09:06 by Ida Kendrick RN) Back pain Hyperlipidemia Diet-controlled diabetes mellitus Renal calculi Surgical History No pertinent past surgical history Social History Housing: House Alcohol intake: current Alcohol intake frequency: holidays/special occasions only Alcohol type: beer and wine Patient Tobacco Use Status: Current everyday Tobacco user Tobacco use type: Cigarette Cigarettes Per Day: 4 e-Cigarette/Vaping Use: Never Used Second Hand Smoke Exposure: No service: No Current occupational status: employed Current occupational exposures/hazards: No Cognitive needs: No Hearing needs: No Vision needs: No Review of Systems Const All systems reviewed & are unremarkable except as noted in HPI and below Reports no additional complaints Eyes Reports no additional complaints ENT Reports no additional complaints Card Reports no additional complaints Resp Reports no additional complaints GI Reports no additional complaints Reports as per HPI Musc Reports no additional complaints Skin/Breast Reports system reviewed and no additional complaints, except as documented Neuro Reports no additional complaints Psych Reports no additional complaints Endo Reports no additional complaints Johny/Lymph Reports no additional complaints Aller/Immun Reports no additional complaints Results Reviewed Results Reviewed: Date of Service: 04/14/24 CT ABDOMEN AND PELVIS WITHOUT CONTRAST CLINICAL INFORMATION: Left flank pain COMPARISON: None available. TECHNIQUE: Multidetector volumetric imaging was performed from the superior aspect of the liver through the pubic symphysis. Sagittal and coronal reformatted images were obtained on the technologist's workstation. This CT examination was performed using dose optimization techniques as appropriate, variously including the following: *Automated exposure control *Adjustment of mA and/or kV according to patient size (this includes techniques or standardized protocols for targeted exams where dose is matched to indication/reason for exam; i.e. extremities or head) *Use of iterative reconstruction technique DLP: 472 mGy-cm FINDINGS: VENDING SERVICE TECHNICIAN: Nonspecific prominent small bowel loops right mid abdomen. Evaluation of the mid abdominal contents limited by motion. LUNG BASES: The visualized lung bases are unremarkable. LIVER, GALLBLADDER, AND BILIARY TREE: The liver is prominent in size. Attenuation within normal limits. No focal hepatic lesion or biliary ductal dilatation is present. The gallbladder is unremarkable with no evidence of radiopaque gallstones, gallbladder wall thickening, or obvious pericholecystic inflammatory changes. . PANCREAS: Unremarkable. SPLEEN: Unremarkable. ADRENAL GLANDS: Unremarkable. KIDNEYS AND URETERS: Right kidney is normal in size, shape and position. No right renal, ureteral calculi, right hydroureteronephrosis identified. In comparison, the left kidney is enlarged measuring 12 cm and is edematous appearing. There is moderate left hydroureteronephrosis down to 7 mm distal UVJ calculus. Perinephric and periureteral stranding. Tiny nonobstructing left midpole calculi. BLADDER: Decompressed GASTROINTESTINAL TRACT: Distended stomach. Nonobstructive bowel pattern. Descending colon is decompressed. No colonic pathology recognized. ABDOMINAL WALL: No significant hernia is appreciated. LYMPH NODES: Normal. VASCULAR: Unremarkable. PELVIC VISCERA: Unremarkable. OSSEOUS STRUCTURES: Unremarkable. IMPRESSION: 7 mm left UVJ calculus with moderate left hydroureteronephrosis, left perinephric, periureteral stranding and edematous appearing left kidney. Assessment & Plan Assessment & Plan (1) Left ureteral stone: Code(s): N20.1 - Calculus of ureter Category: Medical (2) Kidney stone on left side: Code(s): N20.0 - Calculus of kidney Category: Medical Plan 24 hr urine Patient Instructions: The patient had an opportunity to ask questions regarding treatment plan. The patient expressed understanding and agreement with the above treatment plan. The patient is aware they should contact our office by phone for worsening of their current condition or the appearance of new symptoms. Compliance is encouraged with any medications and followup testing that is ordered. It is a privilege to be allowed the opportunity to participate in the urologic care of your patient. If you have any questions or concerns regarding treatment for the above conditions please do not hesitate to contact me. The office telephone contact is [phone]. This note is constructed in part using voice recognition software. While every effort has been made to ensure accuracy musical performer errors may have been included. Yours sincerely, Abbi Gore MD Coding Level of Care Code Est Pt Level 3 (55938) Diagnoses Left ureteral stone N20.1 Kidney stone on left side N20.0
== END 2024-06-08 12:17 | disposition home or self-care (01) ==
PROVIDERS: PCP Family Medicine; Visit Provider Urology
DX: N20.1 Calculus of ureter (principal); N20.0 Calculus of kidney
CPT/HCPCS: 99213

== ENCOUNTER → 2024-07-13 08:40 | Outpatient (BNVA) | payer OTHER, SELFPAY | PROVIDERS: PCP Family Medicine; Visit Provider Family Medicine ==

== ENCOUNTER 2024-07-20 08:37 | Outpatient (REF) | payer OTHER, SELFPAY ==
[2024-07-20 11:17] LABS: Alanine Aminotransferase 27 U/L (0-40); Albumin Level 4.1 g/dL (3.5-5.0); Alkaline Phosphatase 89 U/L (39-117); Anion Gap 8 (12-20); Aspartate Amino Transferase 32 U/L (5-37); Bilirubin Total 0.6 mg/dL (0.0-1.0); Blood Urea Nitrogen 19 mg/dL (9-16); Calcium 8.9 mg/dL (8.4-10.2); Carbon Dioxide 22 mmol/L (22-29); Chloride 111 mmol/L (96-108); Cholesterol 263 mg/dL (<200); Estimated Glomerular Filt Rate > 60; Glucose Fasting 119 mg/dL (60-99); HDL Cholesterol 37 mg/dL (>40); LDL Cholesterol Calculated 197 mg/dL (<100); Potassium 4.3 mmol/L (3.3-5.1); Sodium 137 mmol/L (135-145); Total Protein 7.8 g/dL (6.5-8.0); Triglycerides 148 mg/dL (<150)
== END 2024-07-20 08:38 | disposition home or self-care (01) ==
LOC: HO.WFDLDS 08:37
PROVIDERS: Visit Provider Family Medicine
DX: Z00.00 Encounter for general adult medical examination without abnormal findings (principal); E78.5 Hyperlipidemia, unspecified
CPT/HCPCS: 36415; 80053; 80061

== ENCOUNTER 2024-07-21 12:37 | Outpatient (AMB) | payer OTHER, SELFPAY ==
--- NOTE | 2024-07-21 12:32 | A.OFFPC_ITS ---
Intake Visit Reasons: f/u HLD /Lab review Intake Note: lab review Allergies flower Adverse Reaction (Mild, Uncoded 06/08/24 11:54) Itching Medication List - Last Reconciled 07/21/24 by Guanako Flores MD No Known Home Meds Tobacco use date assessed: 08/28/23 Dental Screening Dental Screen Date: 08/28/23 HPI f/u HLD /Lab review HPI Details Patient?presents?via?telemedicine?to?follow-up?on?hyperlipidemia He?had?discontinue?rosuvastatin. Reviewed?labs?with?patient: LDL?cholesterol?197?is?very?high. HDL?37?is?too?low [facility] Medical History (Updated 06/12/24 @ 09:06 by Ida Kendrick RN) Back pain Hyperlipidemia Diet-controlled diabetes mellitus Renal calculi Surgical History No pertinent past surgical history Social History Housing: House Alcohol intake: current Alcohol intake frequency: holidays/special occasions only Alcohol type: beer and wine Patient Tobacco Use Status: Current everyday Tobacco user Tobacco use type: Cigarette Cigarettes Per Day: 4 e-Cigarette/Vaping Use: Never Used Second Hand Smoke Exposure: No service: No Current occupational status: employed Current occupational exposures/hazards: No Cognitive needs: No Hearing needs: No Vision needs: No Questionnaire Thrive Questionnaire Date Thrive assessed: 08/28/23 KATHI-7 AMB Questionnaire KATHI-7 Date KATHI - 7 assessed: 08/28/23 Source: Developed by Drs. Matthew Esquivel, Araceli Lucia, Viktor Guaman and colleagues, with an educational ofe from [employer]. Review of Systems Const Denies chills, Denies fatigue, Denies fever(s), Denies headache(s) and Denies weakness ENT Denies dizziness and Denies headache(s) Card Denies chest pain, Denies lightheadedness, Denies dyspnea and Denies other (Palpitations) Resp Denies cough, Denies dyspnea, Denies wheezing and Denies other ( shortness of breath) Musc Denies numbness and Denies tingling Neuro Denies dizziness, Denies headache(s), Denies numbness, Denies tingling, Denies paresthesias and Denies weakness Psych Denies anxiety and Denies depression Endo Denies fatigue Aller/Immun Denies wheezing Physical exam (Primary Care) Tobacco/Smoking Status: Tobacco use Status Tobacco use date assessed 08/28/23 07/21/24 12:34 Patient Tobacco Use Status Current everyday Tobacco 07/21/24 12:34 Tobacco use type Cigarette 07/21/24 12:34 e-Cigarette/Vaping Use Never Used 07/21/24 12:34 Thrive Assessment: Date of Thrive Assessment Date Thrive assessed 08/28/23 07/21/24 12:34 Telehealth Telehealth Telehealth Platform: Telephone Location of provider rendering services: practice address Location of patient: address on file Patient Identification confirmed using: Name, : Yes Telehealth method: voice only Patient verbally consented to treatment: Yes Patient verbally consented to billing insurance company: Yes Patient informed of any privacy concerns related to visit: Yes Minutes spent on Phone/Video with Pt.: 6 Coding Level of Care Code Tele Est Pt Level 2 (96596) Diagnoses Hyperlipidemia E78.5 Assessment & Plan Assessment & Plan (1) Hyperlipidemia: Code(s): E78.5 - Hyperlipidemia, unspecified Category: Medical Plan: LDL?cholesterol?is?again?very?high.??HDL?is?a?little?low He?had?been?on?rosuvastatin?but?had?discontinue?this. He?will?resume?rosuvastatin?40?mg?daily We?will?recheck?lipids?in?a?few?months Orders: Orders Comprehensive [place]. Panel Fast Today E78.5 - Hyperlipidemia, unspecified, Z00.00 - Encounter for general adult medical examination without abnormal findings Lipid Panel Today E78.5 - Hyperlipidemia, unspecified, Z00.00 - Encounter for general adult medical examination without abnormal findings Medications: Refilled rosuvastatin 40 mg PO DAILY 90 tabs 3RF 90 days
== END 2024-07-21 16:09 | disposition home or self-care (01) ==
LOC: HO.HMCFM 12:37
PROVIDERS: PCP Family Medicine; Visit Provider Family Medicine
DX: E78.5 Hyperlipidemia, unspecified (principal)

== ENCOUNTER 2024-10-14 08:42 | Outpatient (REF) | payer OTHER, SELFPAY ==
[2024-10-14 11:15] LABS: Estimated Average Glucose 117 mg/dL; Hemoglobin A1C 144.7312 umol/L; Hemoglobin A1c % 5.7 % (<6.0); Total Hemoglobin (HGBA1C) 3761.1867 umol/L
[2024-10-14 11:23] LABS: Alanine Aminotransferase 35 U/L (0-40); Albumin Level 4.1 g/dL (3.5-5.0); Alkaline Phosphatase 91 U/L (39-117); Anion Gap 12 (12-20); Aspartate Amino Transferase 31 U/L (5-37); Bilirubin Total 0.8 mg/dL (0.0-1.0); Blood Urea Nitrogen 19 mg/dL (9-16); Calcium 8.8 mg/dL (8.4-10.2); Carbon Dioxide 23 mmol/L (22-29); Chloride 107 mmol/L (96-108); Cholesterol 261 mg/dL (<200); Estimated Glomerular Filt Rate > 60; Glucose Fasting 124 mg/dL (60-99); HDL Cholesterol 34 mg/dL (>40); LDL Cholesterol Calculated 188 mg/dL (<100); Sodium 138 mmol/L (135-145); Total Protein 7.6 g/dL (6.5-8.0); Triglycerides 198 mg/dL (<150)
== END 2024-10-14 08:43 | disposition home or self-care (01) ==
LOC: HO.WFDLDS 08:42
PROVIDERS: Visit Provider Family Medicine
DX: Z00.00 Encounter for general adult medical examination without abnormal findings (principal); R73.01 Impaired fasting glucose; E78.5 Hyperlipidemia, unspecified
CPT/HCPCS: 36415; 80053; 80061; 83036

== ENCOUNTER 2024-10-21 08:35 | Outpatient (AMB) | payer OTHER, SELFPAY ==
--- NOTE | 2024-10-21 08:36 | A.OFFVIS_ITS ---
Vital Signs 10/21/24 08:37 Height 5 ft 2 in Weight 165 lb BMI 30.2 BP 130/80 Blood Pressure Location Rt brachial Position Sitting Pulse 86 Pulse Source Pulse Oximeter Pulse Oximetry (%) 98 Oxygen Delivery Method Room Air Intake Visit Reasons: colo screening Intake Note: NEW PATIENT for initial colo screening. CC; Pt denies any GI sx or concerns at this time. Cyber Security Consultant Required: No Accompanied by: Self / Same As Patient Allergies flower Adverse Reaction (Mild, Uncoded 10/21/24 08:37) Itching HPI HPI colo screening: Details: 44 year old? male here today for pre colonoscopy screening.? Patient was sent to us by his PCP.? This is his first colonoscopy screening.? Patient denies any gastrointestinal symptoms in the past or at present.? Denies any personal or family history of gastrointestinal disease, colon polyps, or CRC.? Patient never had anesthesia in the past.? Negative for history of sleep apnea.? Denies any history of cardiac, renal, pulmonary, or hepatic disease.?? No history of infectious? diseases like hepatitis A, B, C, HIV or tuberculosis.? Patient is not on any anticoagulation [facility] Medical History Back pain Hyperlipidemia Diet-controlled diabetes mellitus Renal calculi Surgical History No pertinent past surgical history Social History Housing: House Alcohol intake: current Alcohol intake frequency: holidays/special occasions only Alcohol type: beer and wine Patient Tobacco Use Status: Current everyday Tobacco user Tobacco use type: Cigarette Cigarettes Per Day: 4 e-Cigarette/Vaping Use: Never Used Second Hand Smoke Exposure: No service: No Current occupational status: employed Current occupational exposures/hazards: No Cognitive needs: No Hearing needs: No Vision needs: No Review of Systems Const Denies weight gain and Denies weight loss ENT Reports no additional complaints, Denies dysphagia and Denies odynophagia Card Reports no additional complaints Resp Reports no additional complaints GI Denies abdominal pain, Denies belching, Denies melena, Denies bloating, Denies change in bowel habits, Denies dysphagia, Denies excessive flatus, Denies dyspepsia, Denies heartburn, Denies diarrhea, Denies loose stools, Denies nausea, Denies odynophagia and Denies vomiting Reports no additional complaints Musc Reports no additional complaints Neuro Reports no additional complaints Psych Reports no additional complaints Endo Reports no additional complaints Physical Exam Vital Signs: BMI result Body Mass Index 30.2 Const General: healthy appearing, no acute distress and well developed Nutritional Appearance: well nourished Orientation/consciousness: patient oriented x3 Resp Effort & Inspection: normal respiratory effort, able to speak in complete sentences, no tracheal deviation and symmetric chest movement Auscultation: clear to auscultation bilaterally Cardio Rate: regular rate GI Inspection: Yes normal to inspection and No distended Palpation (GI): Soft to palpation, not firm, nontender and No hepatosplenomegaly present Auscultation: normal bowel sounds General: Yes no CVA tenderness Back/Spine/Pelvis Back: no CVA tenderness Skin General skin exam: elasticity normal, turgor normal and dry skin Neuro General: patient oriented x3 Psych Appearance: grossly normal Mental Status: mental status grossly normal Assessment & Plan Assessment & Plan (1) Screening for colon cancer: Code(s): Z12.11 - Encounter for screening for malignant neoplasm of colon Category: Medical Plan Patient denies any GI, cardiac or respiratory symptoms.? Denies any issues with anesthesia in the past.? Denies any history of sleep apnea.? No history infectious diseases in the past or present.? Not on any anticoagulation therapy.? No family or personal history of colon cancer or polyps.? Patient domenico es melena, hematochezia, unintentional weight loss or ribbon like stools.? Discussed at length the pre-procedure,? prep, diet & medications as well as what to expect prior, during and after the procedure.?? Stressed the importance of good bowel prep.? Recommended the use of Vaseline or Calmoseptine OTC & baby wipes with bowel movements to promote comfort.? ?Patient verbalizes understanding and agrees to plan of care.? He was given the opportunity to ask questions and all questions answered.? We will see him after the procedure.? Medications: New polyethylene glycol 3350 (Miralax) As directed by gastroenterology department at [facility] 238 grams PO ONCE 238 grams 0RF Z12.11 - Encounter for screening for malignant neoplasm of colon bisacodyl (Dulcolax (bisacodyl)) take 4 tabs at noon the day before your colonoscopy 20 mg (4 x 5 mg) PO ONCE 1 day 4 tabs 0RF Z12.11 - Encounter for screening for malignant neoplasm of colon Coding Level of Care Code New Pt Level 3 (95237) Diagnoses Screening for colon cancer Z12.11 Time Spent (min) 40 Comment 30 minutes spent with patient and additional 10 minutes spent reviewing his records
[2024-10-21 08:37] VITALS: BP 130/80; PULSE 86; O2SAT 98; BMI 30.2
== END 2024-10-21 09:55 | disposition home or self-care (01) ==
LOC: HO.HGI 08:36
PROVIDERS: PCP Family Medicine; Visit Provider Nurse Practitioner Family
DX: Z01.818 Encounter for other preprocedural examination (principal); Z12.11 Encounter for screening for malignant neoplasm of colon
CPT/HCPCS: 99203

== ENCOUNTER 2024-10-28 08:45 | Outpatient (AMB) | payer OTHER, SELFPAY ==
--- NOTE | 2024-10-28 09:04 | MHC.PC.OV ---
Vital Signs 10/28/24 09:08 Height 5 ft 2 in Weight 162 lb 6 oz BMI 29.7 BP 96/66 Blood Pressure Location Lt brachial Position Sitting Respiration 16 Pulse 76 Pulse Source Pulse Oximeter Temp 98.0 F Temp Source Oral Pulse Oximetry (%) 96 Oxygen Delivery Method Room Air Intake Visit Reasons: f/u for hyperlipidemia AND DM - see comments Intake Note: patient is scheduled to review labs and to follow up on dm Bottom Scrubber Required: No Information Interpreted: non-clinical & clinical Allergies flower Adverse Reaction (Mild, Uncoded 10/21/24 08:37) Itching Medication List - Last Reconciled 10/28/24 by Guanako Flores MD bisacodyl (Dulcolax (bisacodyl)) 20 mg (4 x 5 mg) PO ONCE 1 day polyethylene glycol 3350 (Miralax) 238 grams PO ONCE rosuvastatin 40 mg PO DAILY 90 days Tobacco use date assessed: 08/28/23 Dental Screening Dental Screen Date: 08/28/23 HPI f/u for hyperlipidemia AND DM - see comments HPI Details 44 y/o male presents to f/u HLD, diabetes. Labs drawn 10/14/24. Reviewed labs with pt. A1c 5.7%. Had been as high as 7.1% in January 2023. Triglycerides 198. TC 261. LDL 188. HDL low at 34. Pt notes he has only been on rosuvastatin for about a week. HPI Comments History of Present Illness Details Documentation assistance for Guanako Flores MD, was provided by Chester Otero,? Release And Technical Records Clerk on 10/28/2024 at 9:16 AM MELISSA. I, Dr. Flores, have read, observed, and verified documentation. ? PFSH Medical History Back pain Hyperlipidemia Diet-controlled diabetes mellitus Renal calculi Surgical History No pertinent past surgical history Social History Housing: House Alcohol intake: current Alcohol intake frequency: holidays/special occasions only Alcohol type: beer and wine Patient Tobacco Use Status: Current everyday Tobacco user Tobacco use type: Cigarette Cigarettes Per Day: 4 e-Cigarette/Vaping Use: Never Used Second Hand Smoke Exposure: No service: No Current occupational status: employed Current occupational exposures/hazards: No Cognitive needs: No Hearing needs: No Vision needs: No Questionnaire PHQ-9 Over the last 2 weeks, how often have you been bothered by any of the following problems? 1. Little interest or pleasure in doing things: several days 2. Feeling down, depressed, or hopeless: not at all 3. Trouble falling or staying asleep, or sleeping too much: not at all 4. Feeling tired or having little energy: not at all 5. Poor appetite or overeating: not at all 6. Feeling bad about yourself - or that you are a failure or have let yourself or your family down: not at all 7. Trouble concentrating on things, such as reading the newspaper or watching television: not at all 8. Moving or speaking so slowly that other people could have noticed. Or the opposite - being so fidgety or restless that you have been moving around a lot more than usual: not at all 9. Thoughts that you would be better off or of hurting yourself in some way: not at all Total score: 1 Depression Screening Interpretation: Negative Depression Screening Done: Yes 37052 - PHQ-9 Billing: Yes Source: Developed by Drs. Matthew Esquivel, Araceli Lucia, Viktor Guaman and colleagues, with an educational ofe from [employer]. Thrive Questionnaire Date Thrive assessed: 08/28/23 I am a: Patient What is your living situation today?: I have a steady place to live Within the past 12 months, did the food you bought not last and you didn't have the money to get more?: Never true Within the past 12 months, did you worry whether your food would run out before you got money to buy more?: Never true Do you have trouble paying for medicines?: No Do you have trouble getting transportation to medical appointments?: No Do you have trouble paying your heating and electricity bill?: No Do you have trouble taking care of your child, family member or friend?: No Do you have trouble with day-to-day activities such as bathing, preparing meals, shopping, managing finances, etc.?: No Are you currently unemployed and looking for a job?: No Are you interested in more education?: No Please select the resources that you would like help with: None Currently or been in a relationship where the following occur: I choose not to answer THRIVE Score: 0 AUDIT C Alcohol Use Questionnaire (AUDIT-C) 1. How often do you have a drink containing alcohol?: 2-4 times a month 2. How many drinks containing alcohol do you have on a typical day when you are drinking?: 5 or 6 3. How often do you have six or more drinks on one occasion?: Never Total Score: 4 KATHI-7 AMB Questionnaire KATHI-7 Date KATHI - 7 assessed: 10/28/24 Feeling nervous, anxious, or on edge: 0 = Not at all Not being able to stop or control worryin = Not at all Worrying too much about different things: 0 = Not at all Trouble relaxin = Not at all Being so restless that it is hard to sit still: 0 = Not at all Becoming easily annoyed or irritable: 0 = Not at all Feeling afraid as if something awful might happen: 0 = Not at all Total KATHI-7 score (0-4 normal; 5-9 mild; 10-14 moderate; 15-21 severe): 0 Source: Developed by Drs. Matthew Esquivel, Araceli Lucia, Viktor Guaman and colleagues, with an educational ofe from [employer]. KATHI-7 Assessment Billing KATHI-7 Assessment Tool: KATHI-7 Assessment 28351 Review of Systems Const Denies chills, Denies fatigue, Denies fever(s), Denies headache(s) and Denies weakness ENT Denies dizziness and Denies headache(s) Card Denies dyspnea Resp Denies cough, Denies dyspnea, Denies wheezing and Denies other (shortness of breath) Musc Denies numbness and Denies tingling Neuro Denies dizziness, Denies headache(s), Denies numbness, Denies tingling and Denies weakness Psych Denies anxiety and Denies depression Endo Denies fatigue Aller/Immun Denies wheezing Physical exam (Primary Care) Vital Signs: Last Vital Signs Temp 98.0 F 10/28/24 09:08 Pulse 76 10/28/24 09:08 Resp 16 10/28/24 09:08 BP 96/66 10/28/24 09:08 Pulse Ox 96 05/28/25 09:08 Oxygen Delivery Method Room Air 10/28/24 09:08 BMI result Body Mass Index 29.7 Tobacco/Smoking Status: Tobacco use Status Tobacco use date assessed 08/28/23 10/28/24 09:09 Patient Tobacco Use Status Current everyday Tobacco 10/28/24 09:09 Tobacco use type Cigarette 10/28/24 09:09 e-Cigarette/Vaping Use Never Used 10/28/24 09:09 PHQ-9: PHQ-9 Score PHQ-9: Total score 1 10/28/24 09:15 Depression Screening Interpretation: Negative Thrive Assessment: Date of Thrive Assessment Date Thrive assessed 08/28/23 10/28/24 09:09 Currently or been in a relationship where the following occur: I choose not to answer Const General: well developed; No acute distress Nutritional Appearance: well nourished Orientation/consciousness: patient oriented x3 HENMT Head: Yes normocephalic and Yes atraumatic Eyes General: appearance normal, both eyes and all related structures Pupils: Equal, round and reactive pupils present EOM: EOMs intact bilaterally Resp Effort & Inspection: normal respiratory effort Auscultation: clear to auscultation bilaterally Cardio Rate: regular rate Rhythm: regular rhythm Heart sounds: S1 normal heart sound present, S2 normal heart sound present, no gallops, no murmurs and no rubs Neuro General: patient oriented x3 and gait normal Cranial nerves: Yes Equal, round and reactive pupils present Psych Affect: normal affect Coding Level of Care Code Est Pt Level 3 (93257) Diagnoses Hyperlipidemia E78.5 Diet-controlled diabetes mellitus E11.9 Additional Codes KATHI-7 Assessment Billing - KATHI-7 Assessment Tool: KATHI-7 Assessment 68440 ([id number]) PHQ-9 - 02136 - PHQ-9 Billing: Yes ([id number]) Assessment & Plan Assessment & Plan (1) Hyperlipidemia: Code(s): E78.5 - Hyperlipidemia, unspecified Category: Medical Plan: LDL?cholesterol?is?still?much?too?high He?says?he?started?rosuvastatin?up?again?about?a?week?ago Will?have?him?continue?this?and?recheck?lipids?in?a?couple?months (2) Diet-controlled diabetes mellitus: Code(s): E11.9 - Type 2 diabetes mellitus without complications Category: Medical Plan: A1c?5.9%?which?is?good?control?and?steady. Goal?is?less?than?7% Continue?diet?control Continue?exercise?and?weight?loss Orders: Orders Lipid Panel Today E78.6 - Lipoprotein deficiency, Z00.00 - Encounter for general adult medical examination without abnormal findings Comprehensive [place]. Panel Fast Today E78.6 - Lipoprotein deficiency, Z00.00 - Encounter for general adult medical examination without abnormal findings Medications: Refilled rosuvastatin 40 mg PO DAILY 90 days 90 tabs 3RF
[2024-10-28 09:08] VITALS: BP 96/66; PULSE 76; RESP 16; TEMP 36.7; O2SAT 96; BMI 29.7
== END 2024-10-28 09:29 | disposition home or self-care (01) ==
LOC: HO.HMCFM 08:46
PROVIDERS: PCP Family Medicine; Visit Provider Family Medicine
DX: E78.5 Hyperlipidemia, unspecified (principal); E11.9 Type 2 diabetes mellitus without complications

== ENCOUNTER → 2024-10-28 08:45 | Outpatient (BNVA) | payer OTHER, SELFPAY | PROVIDERS: PCP Family Medicine; Visit Provider Family Medicine | DX: E11.9 Type 2 diabetes mellitus without complications (principal); E78.5 Hyperlipidemia, unspecified; Z13.30 Encounter for screening examination for mental health and behavioral disorders, unspecified; Z13.31 Encounter for screening for depression | CPT/HCPCS: 83036; 96127 ==

== ENCOUNTER 2024-10-29 08:29 | Outpatient (AMB) | payer OTHER, SELFPAY ==
--- NOTE | 2024-10-29 08:46 | MHC.OFFVIS ---
Intake Visit Reasons: [facility] f/u Intake Note: Patient is present for a follow up/[facility] Medication:None Antibiotic Allergies:None Blood Thinners: None General Road Production Manager Required: No Accompanied by: Self / Same As Patient Allergies flower Adverse Reaction (Mild, Uncoded 10/21/24 08:37) Itching HPI Comments Details: 10/29/24--Discussed 24 hour urine results collected:09/23/24 Total volume 1.26 L, Calcium 128 mg; Oxalate 27 mg, Citrate 537 mg, Sodium 250I have discussed diet modification to decrease risk of forming more kidney stones. I have discussed low oxalate diet and specific foods to avoid including certain green leafy vegetables, chocalate, nuts, tea, beets, rubarb; low sodium, decreased use of animal protein and the importance of hydration drinking up to 2-2.5 liters of fluids and use of adding lemon to water to increase citrate in the diet. A pamphlet is also provided today. Follow-up in 1 year renal ultrasound prior. 06/08/24--LV --04/16/24 for ureteral stone was given flomax and strainer, states he passed stone, feels better CTAP-7 mm left ureteral stone, distal. No repeat imaging 04/16/24--Phat is a 43-year-old male who was seen in the emergency room a few days ago with complaints of left flank pain. CTAP-7 mm left ureteral stone, distal. There is also a tiny left renal stone. I have discussed to include ureteroscopy. He states that he is comfortable and has not needed to use much of the pain medication. He will continue with Flomax and straining the urine. If he does not pass the stone, plan will be for ureteroscopy laser and ureteral stent. [facility] Medical History Back pain Hyperlipidemia Diet-controlled diabetes mellitus Renal calculi Surgical History No pertinent past surgical history Social History Housing: House Alcohol intake: current Alcohol intake frequency: holidays/special occasions only Alcohol type: beer and wine Patient Tobacco Use Status: Current everyday Tobacco user Tobacco use type: Cigarette Cigarettes Per Day: 4 e-Cigarette/Vaping Use: Never Used Second Hand Smoke Exposure: No service: No Current occupational status: employed Current occupational exposures/hazards: No Cognitive needs: No Hearing needs: No Vision needs: No Review of Systems Const All systems reviewed & are unremarkable except as noted in HPI and below Reports no additional complaints Eyes Reports no additional complaints ENT Reports no additional complaints Card Reports no additional complaints Resp Reports no additional complaints GI Reports no additional complaints Reports as per HPI Musc Reports no additional complaints Skin/Breast Reports system reviewed and no additional complaints, except as documented Neuro Reports no additional complaints Psych Reports no additional complaints Endo Reports no additional complaints Johny/Lymph Reports no additional complaints Aller/Immun Reports no additional complaints Results Reviewed Results Reviewed: Date of Service: 04/14/24 CT ABDOMEN AND PELVIS WITHOUT CONTRAST CLINICAL INFORMATION: Left flank pain COMPARISON: None available. TECHNIQUE: Multidetector volumetric imaging was performed from the superior aspect of the liver through the pubic symphysis. Sagittal and coronal reformatted images were obtained on the technologist's workstation. This CT examination was performed using dose optimization techniques as appropriate, variously including the following: *Automated exposure control *Adjustment of mA and/or kV according to patient size (this includes techniques or standardized protocols for targeted exams where dose is matched to indication/reason for exam; i.e. extremities or head) *Use of iterative reconstruction technique DLP: 472 mGy-cm FINDINGS: NUCLEAR DESIGN ENGINEER: Nonspecific prominent small bowel loops right mid abdomen. Evaluation of the mid abdominal contents limited by motion. LUNG BASES: The visualized lung bases are unremarkable. LIVER, GALLBLADDER, AND BILIARY TREE: The liver is prominent in size. Attenuation within normal limits. No focal hepatic lesion or biliary ductal dilatation is present. The gallbladder is unremarkable with no evidence of radiopaque gallstones, gallbladder wall thickening, or obvious pericholecystic inflammatory changes. . PANCREAS: Unremarkable. SPLEEN: Unremarkable. ADRENAL GLANDS: Unremarkable. KIDNEYS AND URETERS: Right kidney is normal in size, shape and position. No right renal, ureteral calculi, right hydroureteronephrosis identified. In comparison, the left kidney is enlarged measuring 12 cm and is edematous appearing. There is moderate left hydroureteronephrosis down to 7 mm distal UVJ calculus. Perinephric and periureteral stranding. Tiny nonobstructing left midpole calculi. BLADDER: Decompressed GASTROINTESTINAL TRACT: Distended stomach. Nonobstructive bowel pattern. Descending colon is decompressed. No colonic pathology recognized. ABDOMINAL WALL: No significant hernia is appreciated. LYMPH NODES: Normal. VASCULAR: Unremarkable. PELVIC VISCERA: Unremarkable. OSSEOUS STRUCTURES: Unremarkable. IMPRESSION: 7 mm left UVJ calculus with moderate left hydroureteronephrosis, left perinephric, periureteral stranding and edematous appearing left kidney. Assessment & Plan Assessment & Plan (1) Kidney stone on left side: Code(s): N20.0 - Calculus of kidney Category: Medical Plan Monitor kidneys. Follow-up in 1 year renal ultrasound prior. Diet modification discussed to decrease risk of kidney stones. Orders: Orders US renal BI 10 Months N20.0 - Calculus of kidney Patient Instructions: The patient had an opportunity to ask questions regarding treatment plan. The patient expressed understanding and agreement with the above treatment plan. The patient is aware they should contact our office by phone for worsening of their current condition or the appearance of new symptoms. Compliance is encouraged with any medications and followup testing that is ordered. It is a privilege to be allowed the opportunity to participate in the urologic care of your patient. If you have any questions or concerns regarding treatment for the above conditions please do not hesitate to contact me. The office telephone contact is [phone]. This note is constructed in part using voice recognition software. While every effort has been made to ensure accuracy axle and frame mechanic errors may have been included. Yours sincerely, Abbi Gore MD Coding Level of Care Code Est Pt Level 3 (08754) Complex EM visit Add On G2211 Diagnoses Kidney stone on left side N20.0
== END 2024-10-29 09:33 | disposition home or self-care (01) ==
LOC: HO.HUSH 08:30
PROVIDERS: PCP Family Medicine; Visit Provider Urology
DX: N20.0 Calculus of kidney (principal)
CPT/HCPCS: 99213

== ENCOUNTER 2024-12-25 10:23 | Outpatient (REF) | payer OTHER, SELFPAY ==
[2024-12-25 14:18] LABS: Alanine Aminotransferase 42 U/L (0-40); Albumin Level 4.3 g/dL (3.5-5.0); Alkaline Phosphatase 98 U/L (39-117); Anion Gap 11 (12-20); Aspartate Amino Transferase 35 U/L (5-37); Blood Urea Nitrogen 16 mg/dL (9-16); Calcium 8.9 mg/dL (8.4-10.2); Carbon Dioxide 23 mmol/L (22-29); Chloride 109 mmol/L (96-108); Cholesterol 254 mg/dL (<200); Estimated Glomerular Filt Rate > 60; HDL Cholesterol 30 mg/dL (>40); Potassium 4.1 mmol/L (3.3-5.1); Sodium 139 mmol/L (135-145); Total Protein 7.6 g/dL (6.5-8.0); Triglycerides 264 mg/dL (<150)
== END 2024-12-25 10:24 | disposition home or self-care (01) ==
LOC: HO.WFDLDS 10:23
PROVIDERS: Visit Provider Family Medicine
DX: Z00.00 Encounter for general adult medical examination without abnormal findings (principal); E78.6 Lipoprotein deficiency; E78.5 Hyperlipidemia, unspecified
CPT/HCPCS: 36415; 80053; 80061

== ENCOUNTER 2024-12-31 15:15 | Outpatient (AMB) | payer OTHER, SELFPAY ==
--- NOTE | 2024-12-31 15:32 | A.OFFPC_ITS ---
Vital Signs 12/31/24 15:33 Height 5 ft 2 in Weight 161 lb 8 oz BMI 29.5 BP 103/68 Blood Pressure Location Rt brachial Position Sitting Respiration 16 Pulse 85 Pulse Source Pulse Oximeter Temp 98.0 F Temp Source Oral Pulse Oximetry (%) 97 Oxygen Delivery Method Room Air Intake Visit Reasons: f/u HLD Intake Note: patient is scheduled for lab review Sales Market Leader Required: No Allergies flower Adverse Reaction (Mild, Uncoded 10/21/24 08:37) Itching Medication List - Last Reconciled 12/31/24 by Guanako Flores MD bisacodyl (Dulcolax (bisacodyl)) 20 mg (4 x 5 mg) PO ONCE 1 day polyethylene glycol 3350 (Miralax) 238 grams PO ONCE rosuvastatin 40 mg PO DAILY 90 days Tobacco use date assessed: 08/28/23 Dental Screening Dental Screen Date: 08/28/23 HPI f/u HLD HPI Details 44 y/o male presents to f/u D. Had encouraged consistency with his meds. Labs drawn 12/25/24. Reviewed labs with pt. Elevated ALT of 42. Triglycerides 264. TC 254. LDL 172. HDL low at 30. He is on rosuvastatin 40mg daily. [facility] Medical History Back pain Hyperlipidemia Diet-controlled diabetes mellitus Renal calculi Surgical History No pertinent past surgical history Social History Housing: House Alcohol intake: current Alcohol intake frequency: holidays/special occasions only Alcohol type: beer and wine Patient Tobacco Use Status: Current everyday Tobacco user Tobacco use type: Cigarette Cigarettes Per Day: 4 e-Cigarette/Vaping Use: Never Used Second Hand Smoke Exposure: No service: No Current occupational status: employed Current occupational exposures/hazards: No Cognitive needs: No Hearing needs: No Vision needs: No Questionnaire Thrive Questionnaire Date Thrive assessed: 10/28/24 I am a: Patient What is your living situation today?: I have a steady place to live Within the past 12 months, did the food you bought not last and you didn't have the money to get more?: Never true Within the past 12 months, did you worry whether your food would run out before you got money to buy more?: Never true Do you have trouble paying for medicines?: No Do you have trouble getting transportation to medical appointments?: No Do you have trouble paying your heating and electricity bill?: No Do you have trouble taking care of your child, family member or friend?: No Do you have trouble with day-to-day activities such as bathing, preparing meals, shopping, managing finances, etc.?: No Are you currently unemployed and looking for a job?: No Are you interested in more education?: No Please select the resources that you would like help with: None Currently or been in a relationship where the following occur: I choose not to answer THRIVE Score: 0 KATHI-7 AMB Questionnaire KATHI-7 Date KATHI - 7 assessed: 10/28/24 Source: Developed by Drs. Matthew Esquivel, Araceli Luica, Viktor Guaman and colleagues, with an educational ofe from [employer]. Review of Systems Const Denies chills, Denies fatigue, Denies fever(s), Denies headache(s) and Denies weakness ENT Denies dizziness and Denies headache(s) Card Denies dyspnea Resp Denies cough, Denies dyspnea, Denies wheezing and Denies other (shortness of breath) Musc Denies numbness and Denies tingling Neuro Denies dizziness, Denies headache(s), Denies numbness, Denies tingling and Denies weakness Psych Denies anxiety and Denies depression Endo Denies fatigue Aller/Immun Denies wheezing Physical exam (Primary Care) Vital Signs: Last Vital Signs Temp 98.0 F 12/31/24 15:33 Pulse 85 12/31/24 15:33 Resp 16 12/31/24 15:33 BP 103/68 12/31/24 15:33 Pulse Ox 97 12/31/24 15:33 Oxygen Delivery Method Room Air 12/31/24 15:33 BMI result Body Mass Index 29.5 Tobacco/Smoking Status: Tobacco use Status Tobacco use date assessed 08/28/23 12/31/24 15:35 Patient Tobacco Use Status Current everyday Tobacco 12/31/24 15:35 Tobacco use type Cigarette 12/31/24 15:35 e-Cigarette/Vaping Use Never Used 12/31/24 15:35 Thrive Assessment: Date of Thrive Assessment Date Thrive assessed 10/28/24 12/31/24 15:35 Currently or been in a relationship where the following occur: I choose not to answer Const General: well developed; No acute distress Nutritional Appearance: well nourished Orientation/consciousness: patient oriented x3 HENMT Head: Yes normocephalic and Yes atraumatic Eyes General: appearance normal, both eyes and all related structures Pupils: Equal, round and reactive pupils present EOM: EOMs intact bilaterally Resp Effort & Inspection: normal respiratory effort Neuro General: patient oriented x3 and gait normal Cranial nerves: Yes Equal, round and reactive pupils present Psych Affect: normal affect Coding Level of Care Code Est Pt Level 3 (43696) Diagnoses Hyperlipidemia E78.5 Low HDL (under 40) E78.6 Elevated ALT measurement R74.01 Assessment & Plan Assessment & Plan (1) Hyperlipidemia: Code(s): E78.5 - Hyperlipidemia, unspecified Category: Medical Plan: Ongoing and significant hyperlipidemia. Also has had low HDL. Patient has had difficulty with consistency/compliance with medication and also notes that he does not like the way the rosuvastatin and other statins have made him feel. Will refer him to Cardiology to discuss (2) Low HDL (under 40): Code(s): E78.6 - Lipoprotein deficiency Category: Medical Plan: As above (3) Elevated ALT measurement: Code(s): R74.01 - Elevation of levels of liver transaminase levels Category: Medical Plan: Mild elevation. We can follow-up on this and subsequent visits Orders: Referrals Cardiology Referral E78.5 - Hyperlipidemia, unspecified
[2024-12-31 15:33] VITALS: BP 103/68; PULSE 85; RESP 16; TEMP 36.7; O2SAT 97; BMI 29.5
== END 2024-12-31 16:10 | disposition home or self-care (01) ==
LOC: HO.HMCFM 15:16
PROVIDERS: PCP Family Medicine; Visit Provider Family Medicine
DX: E78.5 Hyperlipidemia, unspecified (principal); E78.6 Lipoprotein deficiency; R74.01 Elevation of levels of liver transaminase levels

== ENCOUNTER 2025-03-24 08:51 | Outpatient (REF) | payer OTHER, SELFPAY ==
[2025-03-24 12:06] LABS: Alanine Aminotransferase 44 U/L (0-40); Albumin Level 4.3 g/dL (3.5-5.0); Alkaline Phosphatase 91 U/L (39-117); Anion Gap 8 (12-20); Aspartate Amino Transferase 29 U/L (5-37); Blood Urea Nitrogen 20 mg/dL (9-16); Calcium 9.1 mg/dL (8.4-10.2); Carbon Dioxide 25 mmol/L (22-29); Chloride 109 mmol/L (96-108); Cholesterol 228 mg/dL (<200); Estimated Glomerular Filt Rate > 60; HDL Cholesterol 34 mg/dL (>40); Potassium 4.2 mmol/L (3.3-5.1); Sodium 138 mmol/L (135-145); Total Protein 7.3 g/dL (6.5-8.0); Triglycerides 167 mg/dL (<150)
== END 2025-03-24 08:52 | disposition home or self-care (01) ==
LOC: HO.WFDLDS 08:51
PROVIDERS: Visit Provider Family Medicine
DX: Z00.00 Encounter for general adult medical examination without abnormal findings (principal); E78.6 Lipoprotein deficiency; E78.5 Hyperlipidemia, unspecified
CPT/HCPCS: 36415; 80053; 80061

== ENCOUNTER 2025-03-30 09:09 | Outpatient (AMB) | payer OTHER, SELFPAY ==
--- NOTE | 2025-03-30 09:19 | A.OFFPC_ITS ---
Vital Signs 03/30/25 09:21 Height 5 ft 2 in Weight 165 lb 8 oz BMI 30.3 BP 104/74 Blood Pressure Location Rt brachial Position Sitting Respiration 12 Pulse 73 Pulse Source Pulse Oximeter Temp 98.2 F Temp Source Oral Pulse Oximetry (%) 97 Oxygen Delivery Method Room Air Intake Visit Reasons: f/u HLD - see comments Intake Note: Diabetes follow up. Left knee pain for a couple months. Horticultural Services Supervisor Required: No Allergies flower Adverse Reaction (Mild, Uncoded 03/30/25 09:19) Itching Medication List - Last Reconciled 03/30/25 by Guanako Flores MD bisacodyl (Dulcolax (bisacodyl)) 20 mg (4 x 5 mg) PO ONCE 1 day polyethylene glycol 3350 (Miralax) 238 grams PO ONCE rosuvastatin 40 mg PO DAILY 90 days Tobacco use date assessed: 03/30/25 Dental Screening Dental Screen Date: 03/30/25 Did you have a dental visit in the last 12 months?: No Did you have a dental problem in the last 6 months where you did not have access to dental care?: No Was dental information given to patient?: Patient has dentist HPI f/u HLD - see comments HPI Details 44 y/o male presents to f/u HLD, labs. Labs drawn 03/24/25. Reviewed labs with pt. Elevated ALT of 44. A1c 6.0% 03/30/25. Triglycerides 167. TC 228. LDL 161. HDL 34. He is on rosuvastatin 40mg daily. Complaints of L knee pain x2 months. Describes pain as 4/10. He notes he feels knee is giving out. Denies any moments of injuries. HPI Comments History of Present Illness Details Documentation assistance for Guanako Flores MD, was provided by Chester Otero, Ice Cream Scooper on 03/30/2025 at 9:41 AM EST. I, Dr. Flores, have read, observed, and verified documentation. [facility] Medical History Back pain Hyperlipidemia Diet-controlled diabetes mellitus Renal calculi Surgical History No pertinent past surgical history Social History (Updated 03/30/25 @ 09:34 by SKYLA Blair Housing: House Alcohol intake: current Alcohol intake frequency: holidays/special occasions only Alcohol type: beer and wine Patient Tobacco Use Status: Current everyday Tobacco user Tobacco use type: Cigarette Cigarettes Per Day: 4 Years Smoked: 30 e-Cigarette/Vaping Use: Never Used Second Hand Smoke Exposure: No service: No Current occupational status: employed Current occupational exposures/hazards: No Cognitive needs: No Hearing needs: No Vision needs: No Questionnaire Thrive Questionnaire Date Thrive assessed: 10/28/24 I am a: Patient What is your living situation today?: I have a steady place to live Within the past 12 months, did the food you bought not last and you didn't have the money to get more?: Never true Within the past 12 months, did you worry whether your food would run out before you got money to buy more?: Never true Do you have trouble paying for medicines?: No Do you have trouble getting transportation to medical appointments?: No Do you have trouble paying your heating and electricity bill?: No Do you have trouble taking care of your child, family member or friend?: No Do you have trouble with day-to-day activities such as bathing, preparing meals, shopping, managing finances, etc.?: No Are you currently unemployed and looking for a job?: No Are you interested in more education?: No Please select the resources that you would like help with: None Currently or been in a relationship where the following occur: I choose not to answer THRIVE Score: 0 AUDIT C Alcohol Use Questionnaire (AUDIT-C) 1. How often do you have a drink containing alcohol?: Monthly or less 2. How many drinks containing alcohol do you have on a typical day when you are drinking?: 1 or 2 3. How often do you have six or more drinks on one occasion?: Never Total Score: 1 KATHI-7 AMB Questionnaire KATHI-7 Date KATHI - 7 assessed: 10/28/24 Source: Developed by Drs. Matthew Esquivel, Araceli Lucia, Viktor Guaman and colleagues, with an educational ofe from [employer]. Review of Systems Const Denies chills, Denies fatigue, Denies fever(s), Denies headache(s) and Denies weakness ENT Denies dizziness and Denies headache(s) Card Denies dyspnea Resp Denies cough, Denies dyspnea, Denies wheezing and Denies other (shortness of breath) Musc Denies numbness and Denies tingling Neuro Denies dizziness, Denies headache(s), Denies numbness, Denies tingling and Denies weakness Psych Denies anxiety and Denies depression Endo Denies fatigue Aller/Immun Denies wheezing Physical exam (Primary Care) Vital Signs: Last Vital Signs Temp 98.2 F 03/30/25 09:21 Pulse 73 03/30/25 09:21 Resp 12 03/30/25 09:21 BP 104/74 03/30/25 09:21 Pulse Ox 97 03/30/25 09:21 Oxygen Delivery Method Room Air 03/30/25 09:21 BMI result Body Mass Index 30.3 Tobacco/Smoking Status: Tobacco use Status Tobacco use date assessed 03/30/25 03/30/25 09:25 Patient Tobacco Use Status Current everyday Tobacco 03/30/25 09:34 Tobacco use type Cigarette 03/30/25 09:34 e-Cigarette/Vaping Use Never Used 03/30/25 09:34 Thrive Assessment: Date of Thrive Assessment Date Thrive assessed 10/28/24 03/30/25 09:20 Currently or been in a relationship where the following occur: I choose not to answer Const General: well developed; No acute distress Nutritional Appearance: well nourished Orientation/consciousness: patient oriented x3 HENMT Head: Yes normocephalic and Yes atraumatic Eyes General: appearance normal, both eyes and all related structures Pupils: Equal, round and reactive pupils present EOM: EOMs intact bilaterally Resp Effort & Inspection: normal respiratory effort Neuro General: patient oriented x3 and gait normal Cranial nerves: Yes Equal, round and reactive pupils present Psych Affect: normal affect Results AMB Hemoglobin A1c AMB Hemoglobin A1c 6.0 % Last Edit by Randi Alexander CMA on 03/30/25 09:32 Results Reviewed Results Reviewed: Laboratory Last Values Hgb A1c (Clinic) 6.0 % (4.0-6.0) 03/30/25 09:26 Coding Level of Care Code Est Pt Level 4 (03473) Diagnoses Hyperlipidemia E78.5 Diet-controlled diabetes mellitus E11.9 Elevated ALT measurement R74.01 Left knee pain M25.562 Assessment & Plan Assessment & Plan (1) Hyperlipidemia: Code(s): E78.5 - Hyperlipidemia, unspecified Category: Medical Plan: TC and LDL cholesterol still quite high HDL is low and mildly elevated triglycerides. Has not tolerated statin medications Have made a referral to Cardiology. No cardiology appointment scheduled yet. (2) Diet-controlled diabetes mellitus: Code(s): E11.9 - Type 2 diabetes mellitus without complications Category: Medical Plan: Diet-controlled diabetes and A1c is 6.0%. Good control. Goal is less than 7.0% Continue diet control (3) Elevated ALT measurement: Code(s): R74.01 - Elevation of levels of liver transaminase levels Category: Medical Plan: Mildly elevated but persistent ALT elevation Will check ultrasound (4) Left knee pain: Code(s): M25.562 - Pain in left knee Category: Medical Plan: Left knee pain: IBU Ice/Heat Check Xray Reviewed gentle stretching Orders: Orders AMB Hemoglobin A1c Today E11.9 - Type 2 diabetes mellitus without complications US abdomen blake w elastography Today R74.01 - Elevation of levels of liver transaminase levels XR knee LT 3V Today M25.562 - Pain in left knee Medications: New ibuprofen 600 mg PO Q8H PRN 90 tabs 0RF pain 30 days
[2025-03-30 09:21] VITALS: BP 104/74; PULSE 73; RESP 12; TEMP 36.8; O2SAT 97; BMI 30.3
== END 2025-03-30 10:16 | disposition home or self-care (01) ==
LOC: HO.HMCFM 09:10
PROVIDERS: PCP Family Medicine; Visit Provider Family Medicine
DX: E78.5 Hyperlipidemia, unspecified (principal); E11.9 Type 2 diabetes mellitus without complications; R74.01 Elevation of levels of liver transaminase levels; M25.562 Pain in left knee

== ENCOUNTER → 2025-03-30 09:09 | Outpatient (BNVA) | payer OTHER, SELFPAY | PROVIDERS: PCP Family Medicine; Visit Provider Family Medicine | DX: E11.9 Type 2 diabetes mellitus without complications (principal); E78.5 Hyperlipidemia, unspecified; M25.562 Pain in left knee; R74.8 Abnormal levels of other serum enzymes; R74.01 Elevation of levels of liver transaminase levels | CPT/HCPCS: 83036 ==